=== PATIENT | male | born 1935 | race Caucasian/White ===

== ENCOUNTER → 2017-01-30 | Outpatient (CLI) | payer OTHER, MEDICARE | LOC: BMCIMAGING 12:44 | PROVIDERS: ATTEND Internal Medicine | DX: J40 Bronchitis, not specified as acute or chronic (principal); J84.9 Interstitial pulmonary disease, unspecified; N40.1 Benign prostatic hyperplasia with lower urinary tract symptoms; R06.02 Shortness of breath | CPT/HCPCS: G0103 ==

== ENCOUNTER → 2017-02-12 | Outpatient (CLI) | payer OTHER, MEDICARE | LOC: BHFA 14:30 | PROVIDERS: ATTEND Internal Medicine | DX: R06.02 Shortness of breath (principal); F17.200 Nicotine dependence, unspecified, uncomplicated ==

== ENCOUNTER 2017-02-14 13:37 | Inpatient (IN) | payer OTHER, MEDICARE ==
[2017-02-14 14:39] LABS: % IMMATURE GRANULYOCYTES 0.5 % (0.0-1.1); ABSOLUTE IMMATURE GRANULOCYTES 0.09 10^3/uL (0.00-0.10); ADD DIFF? NO; ADD MORPH? NO; ADD SCAN? NO; ATYPICAL LYMPHOCYTE FLAG 0 (0-99); FRAGMENT RBC FLAG 0 (0-99); HEMATOCRIT 36.3 % (40.0-51.0); LEFT SHIFT FLG 0 (0-99); LIPEMIA HEMOLYSIS FLAG 80 (0-99); MEAN CELL HEMOGLOBIN 28.4 pg (27.9-34.1); MEAN CELL HEMOGLOBIN CONCENTR. 33.1 g/dL (32.4-36.7); MEAN PLATELET VOLUME 10.1 fL (8.7-11.7); PLATELET CLUMPS FLAG 40 (0-99); PLATELET COUNT 401 10^3/uL (150-400); RED BLOOD CELL COUNT 4.22 10^6/uL (4.40-6.38)
--- NOTE | 2017-02-14 14:40 | EDPHY ---
H & P Stated Complaint: sob/saw cardiology 02/02/has tooth infection Time Seen by Provider: 02/14/17 13:47 HPI/ROS: Chief Complaint: Shortness of breath, weakness, depression HPI: 82-year-old male seen having progressively worsening shortness of breath for the last several months after moving to [place] from [place]. He and his are currently staying in his son is basement well there having house built improved field. Patient has had increasingly difficulty breathing and having a hard time walking up the stairs. Family noted that his breathing seemed to be significantly worse today. He has been seen by primary care physician and Cardiology and Urology. He is also has a history of significant depressions been having worsening time lately. He has been taking his bupropion and citalopram a family states that he has cut his bupropion dose in half at his discretion. Today he was discussing with his that he feels that his body is falling apart knee does not want to live a dwindling life for the next 2 years and would rather more rapidly while he was still fairly healthy. 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 Patient currently denies any active suicidal plan and does not feel that his quality of life right now is to the point that he wishes to end his life. He was noted in recent visits to have worsening renal function, some sort of liver abnormality, history of coronary disease and persistent depression. He is complaining of persistent shortness of breath. No recent cough. Does have worsening dyspnea on exertion. Family has brought him in out of concern for his worsening shortness of breath and because of his worsening depression. Patient is also currently being treated for dental infection. He was 1st started on amoxicillin with no improvement in his been taking Augmentin for the last week. ROS: 10 point Review of Systems is negative except as noted in the HPI. PMH: Depression, coronary artery disease, benign prostate hypertrophy, COPD, Medications: Tamsulosin Pravastatin Lisinopril Citalopram Admit Aspirin Albuterol Allergies: No known drug allergies Social History: Remote smoking, no alcohol, no recreational drug use Family History: non-contributory Physical Exam: Gen: Awake, Alert, flat affect, not making eye contact HEENT: Nose: no rhinorrhea Eyes: PERRLA, EOMI Mouth: Moist mucosa Neck: Supple, no JVD Chest: nontender, diminished air breath sounds at the bilateral bases he, right greater than left with the very mild expiratory wheeze Heart: S1, S2 normal, no murmur Abd: Soft, non-tender, no guarding Back: no CVA tenderness, no midline tenderness Ext: no edema, non-tender Skin: no rash Neuro: CN II-XII intact, Sensation grossly intact, Strength 5/5 in bilateral upper and lower extremities - Personal History Current Tetanus/Diphtheria Vaccine: Yes - Medical/Surgical History Hx Asthma: Yes Hx Chronic Respiratory Disease: Yes Hx Diabetes: No Hx Cardiac Disease: Yes Hx Renal Disease: No Hx Cirrhosis: No Hx Alcoholism: No Hx HIV/AIDS: No Hx Splenectomy or Spleen Trauma: No Other PMH: ? silent heart attack/chronic resp issues/depression/htn/hernia/ strangulated bowel - Social History Smoking Status: Never smoked Constitutional: Initial Vital Signs Temperature (C) 36.7 C 02/14/17 13:42 Heart Rate 76 02/14/17 13:42 Respiratory Rate 20 02/14/17 13:42 Blood Pressure 134/70 H 02/14/17 13:42 O2 Sat (%) 94 02/14/17 13:42 O2 Delivery Mode Room Air Allergies/Adverse Reactions: No Known Allergies Allergy (Unverified 02/14/17 13:39) Home Medications: Medication Instructions Recorded Albuterol 02/14/17 Aspirin 81mg (*) 02/14/17 Augmentin 875 MG TAB (*) 02/14/17 Bupropion HCl Sr 02/14/17 Citalopram 02/14/17 Lisinopril 02/14/17 Pravastatin Sodium 02/14/17 Tamsulosin HCl 02/14/17 Medical Decision Making - Diagnostics Imaging Results: Increased interstitial disease compared to 1 from the of last month with cephalization. Imaging: I viewed and interpreted images myself ED Course/Re-evaluation: 82-year-old male with worsening dyspnea on exertion. Of note he had a BMP with 900 in a recent visit to Cardiology. Chest x-ray here shows increasing interstitial lung markings compared to an x-ray from the of last month with cephalization. Patient also has renal insufficiency with a creatinine of 1.6. Given his worsening symptoms and is shortness of breath and dyspnea on exertion plan will be to admit to the hospital for further care and evaluation and optimization of his cardiopulmonary status. - Data Points Laboratory Results: Laboratory Results 02/14/17 14:20 02/14/17 14:20 02/14/17 02/14/17 14:20 14:20 WBC 17.82 10^3/uL H 10^3/uL (3.80-9.50) RBC 4.22 10^6/uL L 10^6/uL (4.40-6.38) Hgb 12.0 g/dL L g/dL (13.7-17.5) Hct 36.3 % L % (40.0-51.0) MCV 86.0 fL fL (81.5-99.8) MCH 28.4 pg pg (27.9-34.1) MCHC 33.1 g/dL g/dL (32.4-36.7) RDW 13.0 % % (11.5-15.2) Plt Count 401 10^3/uL H 10^3/uL (150-400) MPV 10.1 fL fL (8.7-11.7) Neut % (Auto) 83.9 % H % (39.3-74.2) Lymph % (Auto) 7.6 % L % (15.0-45.0) [place] % (Auto) 6.3 % % (4.5-13.0) Eos % (Auto) 1.2 % % (0.6-7.6) Baso % (Auto) 0.5 % % (0.3-1.7) Nucleat RBC Rel Count 0.0 % % (0.0-0.2) Absolute Neuts (auto) 14.94 10^3/uL H 10^3/uL (1.70-6.50) Absolute Lymphs (auto) 1.36 10^3/uL 10^3/uL (1.00-3.00) Absolute Monos (auto) 1.12 10^3/uL H 10^3/uL (0.30-0.80) Absolute Eos (auto) 0.22 10^3/uL 10^3/uL (0.03-0.40) Absolute Basos (auto) 0.09 10^3/uL 10^3/uL (0.02-0.10) Absolute Nucleated RBC 0.00 10^3/uL 10^3/uL (0-0.01) Immature Gran % 0.5 % % (0.0-1.1) Immature Gran # 0.09 10^3/uL 10^3/uL (0.00-0.10) Sodium 134 mEq/L mEq/L (134-144) Potassium 4.6 mEq/L mEq/L (3.5-5.2) Chloride 102 mEq/L mEq/L (97-110) Carbon Dioxide 20 mEq/l L mEq/l (22-31) Anion Gap 12 mEq/L mEq/L (8-16) BUN 41 mg/dL H mg/dL (7-23) Creatinine 1.6 mg/dL H mg/dL (0.7-1.3) Estimated GFR 42 Glucose 113 mg/dL H mg/dL (70-100) Calcium 9.3 mg/dL mg/dL (8.5-10.4) Total Bilirubin 0.5 mg/dL mg/dL (0.1-1.4) Conjugated Bilirubin 0.4 mg/dL mg/dL (0.0-0.5) Unconjugated Bilirubin 0.1 mg/dL mg/dL (0.0-1.1) AST 16 IU/L L IU/L (17-59) ALT 27 IU/L IU/L (21-72) Alkaline Phosphatase 70 IU/L IU/L (38-126) Total Protein 6.0 g/dL L g/dL (6.3-8.2) Albumin 3.6 g/dL g/dL (3.5-5.0) Lipase 61.0 IU/L IU/L (23-300) TSH Pending Ethyl Alcohol < 10 mg/dL mg/dL (0-10) Departure - Departure Disposition: [facility] Inpatient Acute Clinical Impression: CHF (congestive heart failure), Dyspnea on exertion, Dental abscess, Depression Condition: Fair Referrals: Tonya Edwards MD [Primary Care Provider] - As per Instructions
[2017-02-14 14:54] LABS: ALANINE AMINOTRANSFERASE 27 IU/L (21-72); ALBUMIN 3.6 g/dL (3.5-5.0); ALKALINE PHOSPHATASE 70 IU/L (38-126); ANION GAP 12 mEq/L (8-16); ASPARTATE AMINOTRANSFERASE 16 IU/L (17-59); BILIRUBIN,TOTAL 0.5 mg/dL (0.1-1.4); BILIRUBIN-CONJUGATED 0.4 mg/dL (0.0-0.5); BILIRUBIN-UNCONJUGATED 0.1 mg/dL (0.0-1.1); CALCIUM 9.3 mg/dL (8.5-10.4); CARBON DIOXIDE 20 mEq/l (22-31); CHLORIDE 102 mEq/L (97-110); CREATININE 1.6 mg/dL (0.7-1.3); ETHANOL SERUM < 10 mg/dL (0-10); GLOMERULAR FILTRATION RATE 42; GLUCOSE 113 mg/dL (70-100); POTASSIUM 4.6 mEq/L (3.5-5.2); SODIUM 134 mEq/L (134-144)
[2017-02-14] MEDS ORDERED: ONDANSETRON 4 MG/2 ML VIAL IVP PRN (15:41)
[2017-02-14] MEDS ORDERED: ONDANSETRON DISINTEGRATING 4 MG TAB PO PRN (15:41)
[2017-02-14] MEDS ORDERED: ACETAMINOPHEN 325 MG TAB PO PRN (15:41)
--- NOTE | 2017-02-14 16:37 | PDGENHP ---
History and Physical - Chief Complaint Acute cough - History of Present Illness PCP: Dr. Bowman Primary telecom analyst: Dr. Singh HPI: 82-year-old male presenting with acute cough characterized as nonproductive, in S associated with dyspnea on exertion, generalized weakness, unintentional weight loss, exacerbated by ambulating upstairs or any physical activity. Reports it is alleviated by lying supine and resting. He reports that it is not modified by use of his home albuterol inhaler with spacer. His onset of symptoms was insidious several weeks ago and has been progressive and worsening thereafter, with acute worsening of the specific cough over the last 24-48 hours. On the night prior to presentation, the patient experienced profuse sweating while sleeping as well as chills. He has been receiving workup for this issue through his primary care provider office and chest x-ray in January demonstrated an interstitial lung disease pattern. He under went pulmonary function tests recently but does not know the results. He has an upcoming echocardiogram and stress test at [facility]. It should be noted that he also was told by his primary care provider that he had a periodontal infection and was placed on amoxicillin. The patient's white blood cell count continued to rise and on 02/10 he was adjusted to Augmentin. He has been adherent to this medication. History Information - Allergies/Home Medication List Allergies/Adverse Reactions: No Known Allergies Allergy (Unverified 02/14/17 13:39) Home Medications: Albuterol [Proventil Inhaler HFA (*)] 2 puffs IH Q4-6PRN PRN 02/14/17 [Last Taken Unknown] Amoxicillin/Clavulanate Pot [Augmentin 875 MG TAB (*)] 875 mg PO BID 02/14/17 [ Last Taken 02/14/17] Ascorbic Acid [Vitamin C 500 mg (*)] 500 mg PO DAILY 02/14/17 [Last Taken ] Aspirin [Aspirin 81mg (*)] 81 mg PO HS 02/14/17 [Last Taken 02/13/17] Bupropion HCl [Bupropion HCl Sr] 150 mg PO BID 02/14/17 [Last Taken 02/14/17] Cholecalciferol Vit D3 [Vitamin D3 (*)] 1,000 units PO DAILY 02/14/17 [Last Taken 02/14/17] Citalopram [CeleXA] 20 mg PO DAILY 02/14/17 [Last Taken 02/14/17] Herbals/Supplements -Info Only 1 ea PO DAILY 02/14/17 [Last Taken 02/14/17] Lisinopril [Zestril 10 mg (*)] 10 mg PO HS 02/14/17 [Last Taken 02/13/17] Multivitamins [Multivitamin (*)] 1 each PO DAILY 02/14/17 [Last Taken 02/14/17] Bristol-3 Fatty Acids/Fish Oil [Bristol 3 1,000 mg Softgel] 1 each PO DAILY [Last Taken 02/14/17] Tamsulosin HCl [Flomax 0.4 MG (*)] 0.8 mg PO HS 02/14/17 [Last Taken 02/13/17] guaiFENesin/DEXTROMETHORPHAN [Mucinex Dm ER 1,200-60 mg Tab] 1 each PO BID 02/14 [Last Taken 02/14/17] I have personally reviewed and updated: family history, medical history, social history, surgical history - Past Medical History Additional medical history: Chronic kidney disease stage 3, suspected baseline is 1.4-1.5. Obstructive coronary artery disease with "silent GA". BPH. Suspected COPD but patient has never received a formal diagnosis. Left hip osteoarthritis - Surgical History Reports: no pertinent surgical hx - Family History Additional family history: father with myocardial infarction in his late 70s, underlying pulmonary disease as well - Social History Smoking Status: Former smoker Alcohol Use: None Drug Use: None Additional social history: patient was previously from [place], relocated to [place] several months ago, currently residing with his Review of Systems ROS: 10pt was reviewed & negative except for what was stated in HPI & below Constitutional: Reports: chills, weakness Respiratory: Reports: cough, shortness of breath Genitourinary: Reports: frequency Muscolosketal: Reports: joint pain ( left hip) Physical Exam Temp Pulse Resp BP Pulse Ox 36.8 C 58 L 18 133/68 H 94 02/14/17 16:00 02/14/17 16:00 02/14/17 16:00 02/14/17 16:00 02/14/17 16:00 Constitutional: no apparent distress, not in pain, uncomfortable Eyes: PERRL, anicteric sclera, EOMI Ears, Nose, Mouth, Throat: moist mucous membranes, hearing normal, ears appear normal, no oral mucosal ulcers, other ( no periodontal infection noted) Cardiovascular: regular rate and rhythym, no murmur, rub, or gallop, No JVD, No edema Respiratory: inspiratory crackles ( bilaterally), other ( cough triggered by deep inspiration), No expiratory wheeze, No bronchial breath sounds Gastrointestinal: normoactive bowel sounds, soft, non-tender abdomen, no palpable masses Genitourinary: no bladder fullness, no bladder tenderness Neurologic: AAOx3, No weakness ( motor strength 5/5 bilateral lower extremity) Psychiatric: interacting appropriately, not anxious, not encephalopathic, thought process linear Lab Data & Imaging Review 02/14/17 14:20 02/14/17 14:20 WBC 17.82 10^3/uL (3.80-9.50) H 02/14/17 14:20 RBC 4.22 10^6/uL (4.40-6.38) L 02/14/17 14:20 Hgb 12.0 g/dL (13.7-17.5) L 02/14/17 14:20 Hct 36.3 % (40.0-51.0) L 02/14/17 14:20 MCV 86.0 fL (81.5-99.8) 02/14/17 14:20 MCH 28.4 pg (27.9-34.1) 02/14/17 14:20 MCHC 33.1 g/dL (32.4-36.7) 02/14/17 14:20 RDW 13.0 % (11.5-15.2) 02/14/17 14:20 Plt Count 401 10^3/uL (150-400) H 02/14/17 14:20 MPV 10.1 fL (8.7-11.7) 02/14/17 14:20 Neut % (Auto) 83.9 % (39.3-74.2) H 02/14/17 14:20 Lymph % (Auto) 7.6 % (15.0-45.0) L 02/14/17 14:20 [place] % (Auto) 6.3 % (4.5-13.0) 02/14/17 14:20 Eos % (Auto) 1.2 % (0.6-7.6) 02/14/17 14:20 Baso % (Auto) 0.5 % (0.3-1.7) 02/14/17 14:20 Nucleat RBC Rel Count 0.0 % (0.0-0.2) 02/14/17 14:20 Absolute Neuts (auto) 14.94 10^3/uL (1.70-6.50) H 02/14/17 14:20 Absolute Lymphs (auto) 1.36 10^3/uL (1.00-3.00) 02/14/17 14:20 Absolute Monos (auto) 1.12 10^3/uL (0.30-0.80) H 02/14/17 14:20 Absolute Eos (auto) 0.22 10^3/uL (0.03-0.40) 02/14/17 14:20 Absolute Basos (auto) 0.09 10^3/uL (0.02-0.10) 02/14/17 14:20 Absolute Nucleated RBC 0.00 10^3/uL (0-0.01) 02/14/17 14:20 Immature Gran % 0.5 % (0.0-1.1) 02/14/17 14:20 Immature Gran # 0.09 10^3/uL (0.00-0.10) 02/14/17 14:20 Sodium 134 mEq/L (134-144) 02/14/17 14:20 Potassium 4.6 mEq/L (3.5-5.2) 02/14/17 14:20 Chloride 102 mEq/L (97-110) 02/14/17 14:20 Carbon Dioxide 20 mEq/l (22-31) L 02/14/17 14:20 Anion Gap 12 mEq/L (8-16) 02/14/17 14:20 BUN 41 mg/dL (7-23) H 02/14/17 14:20 Creatinine 1.6 mg/dL (0.7-1.3) H 02/14/17 14:20 Estimated GFR 42 02/14/17 14:20 Glucose 113 mg/dL (70-100) H 02/14/17 14:20 Calcium 9.3 mg/dL (8.5-10.4) 02/14/17 14:20 Total Bilirubin 0.5 mg/dL (0.1-1.4) 02/14/17 14:20 Conjugated Bilirubin 0.4 mg/dL (0.0-0.5) 02/14/17 14:20 Unconjugated Bilirubin 0.1 mg/dL (0.0-1.1) 02/14/17 14:20 AST 16 IU/L (17-59) L 02/14/17 14:20 ALT 27 IU/L (21-72) 02/14/17 14:20 Alkaline Phosphatase 70 IU/L (38-126) 02/14/17 14:20 Total Protein 6.0 g/dL (6.3-8.2) L 02/14/17 14:20 Albumin 3.6 g/dL (3.5-5.0) 02/14/17 14:20 Lipase 61.0 IU/L (23-300) 02/14/17 14:20 TSH 1.740 uIU/mL (0.465-4.680) 02/14/17 14:20 Ethyl Alcohol < 10 mg/dL (0-10) 02/14/17 14:20 Visualized and Interpreted Chest x-ray results: Yes Chest X-Ray results: other ( diffuse bilateral interstitial infiltrates, mildly increased in the bases from chest x-ray in January) Assessment & Plan Assessment: 82-year-old male presenting with acute on chronic shortness of breath in the setting of suspected interstitial lung disease, chronic kidney disease stage 3 Plan: 1. Shortness of breath. Acute on chronic, new problem this provider, further workup indicated. Suspect that underlying etiology is a new diagnosis of interstitial lung disease but other potential etiologies include inflammation from viral precipitant versus CHF versus atypical pneumonia - get high-resolution chest CT - get echocardiogram - send D-dimer to rule out PE, troponin, BNP, respiratory viral panel - order outside records including pulmonary function test recently performed at [facility] - hold on antibiotics until the above information has been obtained, hold on steroids - provide supportive care of cough - discussed with Dr. Pereira, he will consult on the patient in the morning after the above information has been obtained 2. Leukocytosis. Acute, new problem this provider, further workup indicated. Unclear etiology, it is possible the patient has either an atypical pneumonia or on recognized autoimmune inflammatory process involving pulmonary and renal systems - send ESR, CRP, LDH - hold on antibiotics as above - repeat CBC in a.m. - if patient's cough is worsening or he becomes acutely febrile, send sputum cultures, blood cultures, urine Legionella, empirically give azithromycin or levofloxacin 3. Chronic kidney disease stage 3. unclear etiology although the patient has underlying BPH and ongoing urinary symptoms do make chronic obstructive uropathy possibility - patient reports he has been managed for CKD in the outpatient setting prior to arrival in [place], outside records reviewed including 01/30/2017 creatinine level of 1.4 - patient has not establish care with a oil expert and we should expedite his degree of proteinuria with a spot protein, urine microalbumin to creatinine ratio, fraction excretion of sodium - monitor weights, I&Os, serum creatinine level in a.m. 4. BPH. Chronic, continue on Flomax, recommended considering finasteride 5. Depression. Per family report, patient has struggled with depression for the majority of his adult life and is acutely worsened with his acutely worsening medical issues outlined above - the patient expressed to the family as well as Dr. Nova in the emergency department that he was considering harming himself but that he had not decided to take definitive action, reported that he did not feel like he had actively decide on a plan - Dr. Nova and I discussed above, we agreed not to place the patient on M1 hold as he appears to have passive suicidal ideation but no active intention - that said, I believe once the patient is medically cleared of the issues above , should receive a mental health TLC evaluation to ascertain whether he requires inpatient mental health stabilization moving forward - if he does not require inpatient mental health stabilization moving forward, his family does have a psychology appointment scheduled for him this coming Thursday and I would highly recommend that he make that appointment - continue on home medications Wellbutrin and citalopram, it should be noted that the patient is self managing these medications and titrating them 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 Cardiac Prophylaxis. High risk patient, heparin subcu Code. Full, is MPOA Disposition. Anticipated discharge is 02/15/2017, pending further workup and treatment of conditions outlined above. If patient requires greater than 48 hours inpatient hospitalization for ongoing workup, then he will require upgraded to inpatient admission status.
[2017-02-14 17:14] LABS: HEMATOCRIT 35.6 % (40.0-51.0)
[2017-02-14 17:20] LABS: COLOR YELLOW; LEUKOCYTE ESTERASE,URINE NEGATIVE (NEGATIVE); NITRITE,URINE NEGATIVE (NEGATIVE)
[2017-02-14 17:30] LABS: C-REACTIVE PROTEIN 61.7 mg/L (<10.0); LACTATE DEHYDROGENASE 371 IU/L (313-618)
[2017-02-14 17:35] LABS: RANDOM URINE PROTEIN 8 mg/dL (0-11)
[2017-02-14 17:40] LABS: TROPONIN I < 0.012 ng/mL (0-0.034)
[2017-02-14] MEDS: IPRATROPIUM/ALBUTEROL 3 ML DEYVIAL IH SCH ×3 (17:40→21:06)
[2017-02-14] MEDS: buPROPion SR 150 MG TAB PO SCH (20:52)
[2017-02-14] MEDS: ASPIRIN 81 MG CHEWABLE TAB PO SCH (20:52)
[2017-02-14] MEDS: TAMSULOSIN HCL 0.4 MG CAP PO SCH (20:52)
[2017-02-14] MEDS: guaiFENesin 600 MG TAB.ER PO SCH (20:52)
[2017-02-14] MEDS: HEPARIN 5,000 UNIT/0.5 ML SYR SC SCH (20:52)
[2017-02-14] MEDS: LISINOPRIL 10 MG TAB PO SCH (20:52)
[2017-02-15] MEDS: HEPARIN 5,000 UNIT/0.5 ML SYR SC SCH ×3 (05:03→21:33)
[2017-02-15 05:11] LABS: % IMMATURE GRANULYOCYTES 0.4 % (0.0-1.1); ABSOLUTE IMMATURE GRANULOCYTES 0.05 10^3/uL (0.00-0.10); ADD DIFF? NO; ADD MORPH? NO; ADD SCAN? NO; ATYPICAL LYMPHOCYTE FLAG 20 (0-99); FRAGMENT RBC FLAG 0 (0-99); HEMATOCRIT 37.4 % (40.0-51.0); HEMOGLOBIN 12.2 g/dL (13.7-17.5); LEFT SHIFT FLG 0 (0-99); LIPEMIA HEMOLYSIS FLAG 80 (0-99); MEAN CELL HEMOGLOBIN 28.6 pg (27.9-34.1); MEAN CELL HEMOGLOBIN CONCENTR. 32.6 g/dL (32.4-36.7); MEAN CELL VOLUME 87.6 fL (81.5-99.8); MEAN PLATELET VOLUME 10.2 fL (8.7-11.7); PLATELET CLUMPS FLAG 0 (0-99); PLATELET COUNT 419 10^3/uL (150-400); RED BLOOD CELL COUNT 4.27 10^6/uL (4.40-6.38); RED CELL DISTRIBUTION WIDTH 13.2 % (11.5-15.2)
[2017-02-15 05:25] LABS: ALANINE AMINOTRANSFERASE 30 IU/L (21-72); ALBUMIN 3.4 g/dL (3.5-5.0); ALKALINE PHOSPHATASE 68 IU/L (38-126); ANION GAP 10 mEq/L (8-16); ASPARTATE AMINOTRANSFERASE 15 IU/L (17-59); BILIRUBIN,TOTAL 0.6 mg/dL (0.1-1.4); CALCIUM 9.4 mg/dL (8.5-10.4); CARBON DIOXIDE 22 mEq/l (22-31); CHLORIDE 105 mEq/L (97-110); CREATININE 1.6 mg/dL (0.7-1.3); GLOMERULAR FILTRATION RATE 42; GLUCOSE 90 mg/dL (70-100); POTASSIUM 5.1 mEq/L (3.5-5.2); SODIUM 137 mEq/L (134-144); TOTAL PROTEIN 5.9 g/dL (6.3-8.2)
[2017-02-15] MEDS: IPRATROPIUM/ALBUTEROL 3 ML DEYVIAL IH SCH ×4 (06:38→20:41)
[2017-02-15] MEDS ORDERED: Herbals/Supplements -Info Only PO SCH (09:00)
[2017-02-15] MEDS: CITALOPRAM 20 MG TAB PO SCH (10:11)
[2017-02-15] MEDS: OMEGA-3 FATTY ACIDS 1,000 MG CAP PO SCH (10:16)
[2017-02-15] MEDS: guaiFENesin 600 MG TAB.ER PO SCH ×2 (10:16→20:22)
[2017-02-15] MEDS: ASCORBIC ACID 500 MG TAB PO SCH (10:16)
[2017-02-15] MEDS: MULTIVITAMINS 1 EACH TAB PO SCH (10:17)
[2017-02-15] MEDS: buPROPion SR 150 MG TAB PO SCH ×2 (10:17→20:23)
[2017-02-15] MEDS: CHOLECALCIFEROL VIT D3 1,000 UNITS TAB PO SCH (10:17)
--- NOTE | 2017-02-15 13:36 | GCON ---
[f rep st] CONSULTATION REASON FOR ADMISSION: Dyspnea and cough. HISTORY OF PRESENT ILLNESS: The patient is a very pleasant 82-year-old white male with past medical history including chronic renal insufficiency, coronary artery disease, and possible chronic obstru ctive pulmonary disease. He presented with complaints of a cough. This has been going on for sever al weeks. This is nonproductive. He also has significant breathlessness, worsened with any form of exertion, especially when climbing stairs. There has been no chest pain, pleuritic-type chest pain or angina equivalent. He was having some chills and some fever prior to his admission. He has bee n seen by [facility]. He has had pulmonary function testing done there. Currently, he is restin g comfortably on nasal cannula oxygen. His cough has improved some. PAST MEDICAL HISTORY: Again, significant for chronic renal insufficiency, coronary artery disease, possible chronic obstructive pulmonary disease, and osteoarthritis. ALLERGIES: No known allergies to medications. SOCIAL HISTORY: Previous smoker, none for over 50 years. No significant alcohol use. Work history : He is retired. They recently moved from [place] to [place] 3 months ago. He has excellent [facility] support. MEDICATIONS: At home include aspirin, Augmentin, ascorbic acid, bupropion, cholecalciferol, Celexa, Zestril, omega-3 fatty acid, multivitamin, tamsulosin, Mucinex. PHYSICAL EXAM: VITAL SIGNS: Blood pressure is 107/52, pulse 61, respiration 18, temperature is 36. 8, oxygen saturation 93% on 1 L. GENERAL: He is a well-developed, well-nourished, elderly white ma madonna, who is resting comfortably on nasal cannula oxygen. HEENT: Eyes: PERRLA. EOMI. Throat shows no erythema or tonsillar hypertrophy. NECK: Supple. There is no cervical adenopathy. HEART: Re gular rate and rhythm, with a 2/6 systolic murmur at the left sternal border without radiation. VICKY GS: Diminished breath sounds. Increased crackles in the bases. There are no wheeze. There is mil d prolongation expiratory phase. ABDOMEN: Soft, nontender. Bowel sounds are present. EXTREMITIES : No clubbing, cyanosis, or edema. LABORATORIES: Initial white count was 17, currently is 13.1, hemoglobin 12, hematocrit 37, platelet count is 419. Sodium 137, potassium 5.1, chloride 105, CO2 is 22, BUN is 37, creatinine 1.6, gluco se is 90. Urinalysis is negative. Urine drug screen is negative. Respiratory viral panel is pendi ng. A CT scan of the chest shows nonspecific interstitial pneumonitis, with some evidence of bronchiecta sis, and also has coronary atherosclerosis. IMPRESSION: 1. Dyspnea and cough, etiology of which is unclear. Although chronic obstructive pulmonary disease is a possibility, he did not smoke for very long. 2. Nonspecific interstitial pneumonitis. Given his elevated white count, must take into considerat ion an infectious etiology. 3. Chronic renal insufficiency. 4. Coronary artery disease. RECOMMENDATIONS: 1. We will adjust his antibiotics. In this regard, we will start him on azithromycin, in addition to his Augmentin. 2. We will start oral steroids, and we will taper over 2 weeks' time. 3. Wean off oxygen as tolerated. 4. DVT and PE prophylaxis. 5. Stress ulcer prophylaxis. 6. The patient should follow up in our office in the next several weeks. Thank you very much. /[id number]/MODL
[2017-02-15] MEDS: AZITHROMYCIN 250 MG TAB PO SCH (14:11)
[2017-02-15] MEDS: predniSONE 20 MG TAB PO SCH (14:12)
--- NOTE | 2017-02-15 14:15 | ECHO ---
[id number] + + [address] : : [place] [address] : : [phone] + Adult Echocardiographic Report + ----+ :Name: Alvarez JENNINGS Date: 02/15/2017 09:33 AM : : Hospital Admission Number: [id number] Location: 380: :: 1935 Gender: Male Height: 67 in : :Age: 82 yrs Race: WH Weight: 152 lb : :Reason For Study: Eval for CHF : : BSA: 1.8 meters2 : + ----+ MMode/2D Measurements \T\ Calculations IVSd: 0.74 cm LVIDd: 4.4 cm FS: 46.9 % Ao root diam: LVPWd: 0.92 cm LVIDs: 2.3 cm EDV(Teich): 3.6 cm 87.9 ml LA dimension: ESV(Teich): 4.2 cm 18.9 ml EF(Teich): 78.5 % LVLd ap4: 8.1 cm SV(MOD-sp4): EDV(MOD-sp4): 54.0 ml 75.0 ml LVLs ap4: 5.9 cm ESV(MOD-sp4): 21.0 ml EF(MOD-sp4): 72.0 % Normal Measurement Values: + + :LVIDd (3.5-5.7cm) IVSd (0.6-1.1cm) LVPWd (0.6-1.1cm) Aortic Root (2.0-3.7cm)Left Atrium (1.5-4.0cm): :LV Vol(d) (76-115ml) LV Vol(s) (29-48ml) Ejec Fraction (50-65%)PV Patrick (0.6- 1.2m/s) TV Patrick (0.4-1.0m/s) : :MV E Patrick (0.8-1.0m/s)MV A Patrick (0.3-1.0m/s)LVOT Patrick (0.7-1.2m/s) Asc Ao Patrick ( 0.9-1.8m/s) : + + Doppler Measurements \T\ Calculations MV E max patrick: 64.7 cm/sec Ao mean P.5 mmHg TR max patrick: 217.2 cm/sec MV A max patrick: 79.5 cm/sec Ao V2 mean: 95.8 cm/sec TR max P.9 mmHg MV E/A: 0.81 Ao V2 VTI: 28.3 cm RAP systole: 5.0 mmHg RVSP(TR): 23.9 mmHg Left Ventricle The left ventricle is normal in size. There is normal left ventricular wall thickness. Left ventricular systolic function is normal. Ejection Fraction = 65-70%. There is Doppler evidence for diastolic dysfunction. No regional wall motion abnormalities noted. Right Ventricle The right ventricle is normal in size and function. Atria The left atrial size is normal. Right atrial size is normal. The interatrial septum is intact with no evidence for an atrial septal defect. Mitral Valve The mitral valve is normal in structure and function. There is no evidence of mitral valve prolapse. There is no mitral valve stenosis. There is mild mitral regurgitation. Tricuspid Valve The tricuspid valve is normal in structure and function. There is mild tricuspid regurgitation. Right ventricular systolic pressure is normal. Aortic Valve The aortic valve is trileaflet. The aortic valve opens well. There is no aortic stenosis. There is no aortic insufficiency. Pulmonic Valve The pulmonic valve is normal in structure and function. Trace pulmonic valvular regurgitation. Great Vessels The aortic root is normal size. Pericardium/Pleural There is no pericardial effusion. Conclusion A complete two-dimensional transthoracic echocardiogram was performed (2D, M-mode, Doppler and color flow Doppler). Left ventricular systolic function is normal. Ejection Fraction = 65-70%. There is mild mitral regurgitation. There is mild tricuspid regurgitation. Right ventricular systolic pressure is normal. Trace pulmonic valvular regurgitation. There is Doppler evidence for diastolic dysfunction. Final Reading Physician: Jonn Enrique electronically signed on 02/15/2017 02:13 PM Ordering Physician: Jonel Spencer Performed By: Gina Davis, CODY
--- NOTE | 2017-02-15 14:18 | HOSPPROG ---
Hospitalist Progress Note Assessment/Plan: 82-year-old man recently moved from [place] complains of shortness of breath and cough for several weeks. He initially got sick with what sounds like a viral illness from his grandkids in December he has had an ongoing cough and shortness of breath since then. Prior to a admission he was complaining of diaphoresis and chills and opted to come into the emergency department for evaluation. He did see Dr. Singh in clinic who ordered a pulmonary function test the results of which are pending. He also ordered an echo and nuclear stress test # cough and dyspnea with abnormal CT scan concerning for ILD or pneumonitis. He is currently taking Augmentin for a dental infection. Patient discussed with Dr. Pereira. * Treat for presumed infectious etiology with Zithromax in addition to his Augmentin * Prednisone taper * Follow clinically, he will follow up with pulmonology as an outpatient * Echocardiogram. # coronary artery disease, has established care with [facility] and plans on doing nuclear stress test at their facility. He currently has no chest pain # BPH, stable per patient # hypertension # dyslipidemia on a statin # chronic kidney disease # depression. states this been a problem for quite some time and he has not been as compliant as he should be with his antidepressants. On the day of admission his admits she brought him in because he said goodbye to her and was ready to . * Will have TLC evaluation prior to discharge to assess follow-up needs. Pt will need additonal midnight stay for further evaluation of cough and dyspnea , he has had no significant improvement today. Subjective: Patient new to me chart reviewed. Discussed with Dr. Pereira. No new complaints today. He is quite tired. No chest pain. No edema. Objective: Vital Signs Temp Pulse Resp BP Pulse Ox 36.8 C 61 18 107/52 L 93 02/15/17 11:57 02/15/17 11:57 02/15/17 11:57 02/15/17 11:57 02/15/17 11:57 Laboratory Results 02/15/17 04:25 02/15/17 04:25 02/14/17 02/15/17 02/16/17 05:59 05:59 05:59 Intake Total 50 Balance 50 - Physical Exam Constitutional: no apparent distress, appears nourished, not in pain Eyes: PERRL, anicteric sclera, EOMI Ears, Nose, Mouth, Throat: moist mucous membranes Cardiovascular: regular rate and rhythym, no murmur, rub, or gallop Respiratory: no respiratory distress, reduced air movement, inspiratory crackles , No expiratory wheeze, No bronchial breath sounds Gastrointestinal: normoactive bowel sounds, soft, non-tender abdomen, no palpable masses Skin: warm, normal color Neurologic: AAOx3, No facial droop Psychiatric: interacting appropriately, not anxious, not encephalopathic, depressed ICD10 Worksheet Patient Problems: Problems Problem Status Onset CHF (congestive heart failure) Acute Dyspnea on exertion Acute Dental abscess Acute Depression Acute
[2017-02-15] MEDS: guaiFENesin/CODEINE PHOS 10 ML UDCUP PO PRN (15:05)
[2017-02-15] MEDS: ASPIRIN 81 MG CHEWABLE TAB PO SCH (20:22)
[2017-02-15] MEDS: LISINOPRIL 10 MG TAB PO SCH (20:22)
[2017-02-15] MEDS: TAMSULOSIN HCL 0.4 MG CAP PO SCH (20:23)
[2017-02-15] MEDS: BENZONATATE 100 MG CAP PO PRN (20:23)
[2017-02-15] MEDS ORDERED: TEARS/DEXTRAN 70/HYPROMELLOSE 15 ML OPHT.BTL EACHEYE PRN (22:58)
[2017-02-16] MEDS: IPRATROPIUM/ALBUTEROL 3 ML DEYVIAL IH SCH ×4 (05:32→21:05)
[2017-02-16] MEDS: HEPARIN 5,000 UNIT/0.5 ML SYR SC SCH ×3 (05:52→20:47)
[2017-02-16] MEDS: AZITHROMYCIN 250 MG TAB PO SCH (09:40)
[2017-02-16] MEDS: guaiFENesin 600 MG TAB.ER PO SCH ×2 (09:41→20:47)
[2017-02-16] MEDS: CHOLECALCIFEROL VIT D3 1,000 UNITS TAB PO SCH (09:41)
[2017-02-16] MEDS: buPROPion SR 150 MG TAB PO SCH ×2 (09:41→20:46)
[2017-02-16] MEDS: MULTIVITAMINS 1 EACH TAB PO SCH (09:41)
[2017-02-16] MEDS: ASCORBIC ACID 500 MG TAB PO SCH (09:41)
[2017-02-16] MEDS: OMEGA-3 FATTY ACIDS 1,000 MG CAP PO SCH (09:41)
[2017-02-16] MEDS: predniSONE 20 MG TAB PO SCH (09:41)
[2017-02-16] MEDS: CITALOPRAM 20 MG TAB PO SCH (09:41)
--- NOTE | 2017-02-16 11:36 | HOSPPROG ---
Hospitalist Progress Note Assessment/Plan: 82-year-old man recently moved from [place] complains of shortness of breath and cough for several weeks. He initially got sick with what sounds like a viral illness from his grandkids in December he has had an ongoing cough and shortness of breath since then. Prior to a admission he was complaining of diaphoresis and chills and opted to come into the emergency department for evaluation. He did see Dr. Singh in clinic who ordered a pulmonary function test the results of which are pending. He also ordered an echo and nuclear stress test # cough and dyspnea with abnormal CT scan concerning for ILD or pneumonitis. He is currently taking Augmentin for a dental infection. Zithromax added to his antibiotic regimen yesterday as well as prednisone. Patient continues to cough but is feeling a little bit better today. I did review the results of his echocardiogram with the family. Respiratory virus panel is negative. * Continue Zithromax and prednisone * Continue Tessalon Perles * Review with Dr. Garcia regarding possible DC in follow-up today depending on patient's symptoms. * He can cancel his echo at [facility] but should probably get his nuclear stress test per Dr. Singh request # coronary artery disease, has established care with [facility] and plans on doing nuclear stress test at their facility. He currently has no chest pain # BPH, stable per patient # hypertension # dyslipidemia on a statin # chronic kidney disease. No baseline no own but he was followed by a desilverizer in [place]. Yesterday creatinine 1.6 will repeat it this morning. He already has follow-up scheduled with a desilverizer as an outpatient. # depression. states this been a problem for quite some time and he has not been as compliant as he should be with his antidepressants. On the day of admission his admits she brought him in because he said goodbye to her and was ready to . * Will have TLC evaluation prior to discharge to assess follow-up needs. Pt will need 2 midnight stay for further evaluation of cough and dyspnea, he has had no significant improvement today. Subjective: . Feeling better today Still having a cough Objective: Vital Signs Temp Pulse Resp BP Pulse Ox 36.7 C 72 18 107/53 L 94 02/16/17 11:19 02/16/17 11:19 02/16/17 11:19 02/16/17 11:19 02/16/17 11:19 02/15/17 02/16/17 02/17/17 05:59 05:59 05:59 Intake Total 2049 500 Output Total 500 300 Balance 1550 200 - Physical Exam Constitutional: no apparent distress, not in pain Eyes: PERRL Ears, Nose, Mouth, Throat: moist mucous membranes Cardiovascular: regular rate and rhythym Respiratory: no respiratory distress, inspiratory crackles (At the bases, seems better than yesterday.), No bronchial breath sounds Gastrointestinal: normoactive bowel sounds, soft, non-tender abdomen, no palpable masses Genitourinary: no bladder fullness Skin: warm Musculoskeletal: No asymmetric calves, No joint effusion Neurologic: AAOx3 Psychiatric: interacting appropriately, not anxious, not encephalopathic ICD10 Worksheet Patient Problems: Problems Problem Status Onset CHF (congestive heart failure) Acute Dental abscess Acute Depression Acute Dyspnea on exertion Acute
[2017-02-16 12:51] LABS: ANION GAP 12 mEq/L (8-16); CALCIUM 9.7 mg/dL (8.5-10.4); CARBON DIOXIDE 22 mEq/l (22-31); CHLORIDE 102 mEq/L (97-110); CREATININE 1.4 mg/dL (0.7-1.3); GLOMERULAR FILTRATION RATE 49; GLUCOSE 112 mg/dL (70-100); POTASSIUM 4.9 mEq/L (3.5-5.2); SODIUM 136 mEq/L (134-144)
--- NOTE | 2017-02-16 17:16 | PDINTPN ---
Marine Operations Coordinator Progress Note Assessment/Plan: Assessment 82 M admitted with 3 weeks cough and SOB found to have infiltrates on CT scan and hypoxia. Treated with abx with improvement in O2 requirement (RA) and decrease in WBC. Ct report suggested NSIP. * Abnormal CT- I suspect PNA >NSIP given clinical scenario. Agree with completing abx, and slow steroid taper. PFT shows mild obstruction on spirometry but normal volumes and DLCO. He quit smoking around age 35, co COPD not likely and bronchiectasis is mild. In addition, normals for PFT are hard to find in this age group and patient reported difficulty at time of test 2/2 cough (MUCH better now). I can see him in 2-3 weeks with new PFTs and eventiual repeat chest CT (eg 2-3 months). Ok for dc from pulmonary perspective Objective: Vital Signs Temp Pulse Resp BP Pulse Ox 36.7 C 72 18 107/53 L 94 02/16/17 11:19 02/16/17 11:19 02/16/17 11:19 02/16/17 11:19 02/16/17 11:19 Laboratory Results 02/16/17 12:27 02/15/17 02/16/17 02/17/17 05:59 05:59 05:59 Intake Total 2050 500 Output Total 500 300 Balance 1550 200 Physical Exam - Physical Exam General Appearance: WD/WN, alert, no apparent distress EENT: PERRL/EOMI Neck: supple Respiratory: lungs clear, decreased breath sounds, No crackles, No rales Cardiac/Chest: regular rate, rhythm, No edema Abdomen: non-tender, soft, No distended Skin: normal color, warm/dry Lymphatic: no adenopathy Extremities: non-tender, No pedal edema Neuro/Psych: alert, normal mood/affect, oriented x 3 ICD10 Worksheet Patient Problems: Problems Problem Status Onset CHF (congestive heart failure) Acute Dental abscess Acute Depression Acute Dyspnea on exertion Acute
--- NOTE | 2017-02-16 17:56 | HOSPPROG ---
Hospitalist Progress Note Assessment/Plan: 82-year-old man recently moved from [place] complains of shortness of breath and cough for several weeks. He initially got sick with what sounds like a viral illness from his grandkids in December he has had an ongoing cough and shortness of breath since then. Prior to a admission he was complaining of diaphoresis and chills and opted to come into the emergency department for evaluation. He has improved since coming to the hospital with at steroids and antibiotics. # cough and dyspnea with abnormal CT scan concerning for ILD or pneumonitis. He is currently taking Augmentin for a dental infection. Zithromax added to his antibiotic regimen as well as prednisone. patient improved today with good O2 sats on room air * patient will be discharged on a prednisone taper finished Zithromax and he will follow up with Dr. Garcia * case discussed with Dr. Garcia # coronary artery disease, has established care with [facility] and plans on doing nuclear stress test at their facility. He currently has no chest pain # BPH, stable per patient # hypertension # dyslipidemia on a statin # chronic kidney disease. No baseline no own but he was followed by a studio producer in [place]. creatinine improved # depression. states this been a problem for quite some time and he has not been as compliant as he should be with his antidepressants. On the day of admission his admits she brought him in because he said goodbye to her and was ready to . * patient with psychiatric nurse recommends psychiatric consult for medication management * Continue current medications psych consult ordered Pt will need 2 midnight stay for further evaluation of cough and dyspnea, he has had no significant improvement today. Objective: Vital Signs Temp Pulse Resp BP Pulse Ox 36.7 C 72 18 107/53 L 94 02/16/17 11:19 02/16/17 11:19 02/16/17 11:19 02/16/17 11:19 02/16/17 11:19 Laboratory Results 02/16/17 12:27 02/15/17 02/16/17 02/17/17 05:59 05:59 05:59 Intake Total 0 500 Output Total 500 300 Balance 1550 200 ICD10 Worksheet Patient Problems: Problems Problem Status Onset CHF (congestive heart failure) Acute Dyspnea on exertion Acute Dental abscess Acute Depression Acute
[2017-02-16] MEDS: LISINOPRIL 10 MG TAB PO SCH (20:46)
[2017-02-16] MEDS: TAMSULOSIN HCL 0.4 MG CAP PO SCH (20:46)
[2017-02-16] MEDS: ASPIRIN 81 MG CHEWABLE TAB PO SCH (20:46)
[2017-02-16] MEDS: guaiFENesin/CODEINE PHOS 10 ML UDCUP PO PRN (20:50)
[2017-02-16] MEDS: BENZONATATE 100 MG CAP PO PRN (20:50)
[2017-02-17 05:31] LABS: ANION GAP 8 mEq/L (8-16); CALCIUM 9.7 mg/dL (8.5-10.4); CARBON DIOXIDE 22 mEq/l (22-31); CHLORIDE 106 mEq/L (97-110); CREATININE 1.4 mg/dL (0.7-1.3); GLOMERULAR FILTRATION RATE 49; GLUCOSE 93 mg/dL (70-100); POTASSIUM 4.6 mEq/L (3.5-5.2); SODIUM 136 mEq/L (134-144)
[2017-02-17] MEDS: IPRATROPIUM/ALBUTEROL 3 ML DEYVIAL IH SCH ×2 (06:17→09:44)
--- NOTE | 2017-02-17 07:05 | GDS ---
[f rep st] DISCHARGE SUMMARY DIAGNOSIS: 1. Cough, shortness of breath, unclear etiology, improved with prednisone. Followup with Pulmonolo gy. 2. Coronary artery disease. Followup nuclear stress test is scheduled. 3. Benign prostatic hypertrophy. 4. Hypertension. 5. Dyslipidemia. 6. Chronic kidney disease, creatinine 1.4 at discharge. 7. Depression. PROCEDURES DONE: Echocardiogram, normal EF, mild MR, mild TR. Normal right ventricular systolic pr essure. Chest CT, suspect nonspecific interstitial pneumonia with interstitial opacities throughout both aayush gs, most prominent in bilateral lower lobes. Peribronchial thickening and bronchiectasis. Coronary atherosclerosis. CONSULTATIONS: Edgardo Pereira from Pulmonology. HOSPITAL COURSE: The patient is an 82-year-old man, with a history of heart disease, who moved to [facility] in November. He developed a cough in December and has had cough and shortness of breath since then. He had abnormal findings on his chest CT and was admitted for further evaluation. On admissi on, he was seen by Pulmonology, started on Zithromax in combination with his previous antibiotic Aug mentin, and started on a prednisone taper. He was also started on Tessalon Perles and over the cour se of his hospitalization his cough did improve and his breathing was stable. Pulmonology felt that this may have been bronchiectasis versus ILD versus pneumonitis from atypical pneumonia. He has re sponded to therapy here, whether it was the steroids or the Zithromax he will need followup with Pul monology. At this time we will plan to discharge him on a prednisone taper, finish a course of Zith romax and complete his course of Augmentin. He has been seen by Pulmonology during this hospitaliza tion who will follow up with him as an outpatient. Dysphagia. He did complain of some dysphagia during his hospitalization. He was evaluated by [facility], who felt that this was more of an esophageal issue and recommended outpatient esophagram. I will defer to Dr. Edwards, the patient's primary care provider, to schedule this. He also has significant depression and was seen by our home health care social worker and nurse who recommended outpa tient followup. He was not deemed to be suicidal or a risk to harm himself. I will refill his Well butrin for a month and he plans on following up with his therapist as well as Dr. Edwards, and to try and find a psychiatrist in the area. He has been on a stable dose of Wellbutrin and is feeling that it is helping him a little bit. Coronary artery disease. He was seen by Dr. Singh, has a nuclear stress test ordered which will be done in followup. He also had an echo ordered, I told him not to have this done since he just had one in the hospital during this admission. He is currently not having any cardiac symptoms. CONDITION ON DISCHARGE: Good. He is 94% on room air, heart rate 72, blood pressure 107/53, he has been afebrile. He is alert and oriented. His heart is regular. Lungs are clear and diminished. H e does have very fine rales just right at the base, no edema. DISCHARGE MEDICATIONS: Please see discharge medication form. FOLLOWUP INSTRUCTIONS: Follow up with Dr. Edwards in the next 1-2 weeks for hospital followup. She c an check on his respiratory status and cough. She can refill his medications as needed until he is able to establish care with Psychiatry. She can follow up with scheduling an esophagram for further evaluation of his dysphagia, this is been going on for many, many years, and is deemed safe by susi pedro here in the hospital. Follow up with Dr. Eliud Garcia as an outpatient. I gave him the num lynnette to call to establish care, and they will set up an appointment. Pulmonology will follow up with the patient prior to discharge today. Total time spent with the patient on day of discharge and coordination of care is 45 minutes. /[id number]/MODL
[2017-02-17] MEDS: OMEGA-3 FATTY ACIDS 1,000 MG CAP PO SCH (08:10)
[2017-02-17] MEDS: guaiFENesin 600 MG TAB.ER PO SCH (08:10)
[2017-02-17] MEDS: CHOLECALCIFEROL VIT D3 1,000 UNITS TAB PO SCH (08:10)
[2017-02-17] MEDS: predniSONE 20 MG TAB PO SCH (08:11)
[2017-02-17] MEDS: ASCORBIC ACID 500 MG TAB PO SCH (08:11)
[2017-02-17] MEDS: CITALOPRAM 20 MG TAB PO SCH (08:11)
[2017-02-17] MEDS: buPROPion SR 150 MG TAB PO SCH (08:11)
[2017-02-17] MEDS: AZITHROMYCIN 250 MG TAB PO SCH (08:11)
[2017-02-17] MEDS: MULTIVITAMINS 1 EACH TAB PO SCH (08:11)
[2017-02-17] MEDS: HEPARIN 5,000 UNIT/0.5 ML SYR SC SCH ×2 (08:17→14:59)
[2017-02-17 10:00] VITALS: O2SAT 93
[2017-02-17 11:02] VITALS: BP 131/65; PULSE 79; RESP 20; TEMP 98.6
== END 2017-02-17 16:09 | disposition home or self-care (01) | DRG 204 ==
LOC: F3E 15:32 → OBSVTOIN 02-15 14:15
PROVIDERS: ADMIT Internal Medicine; ATTEND Internal Medicine
DX: R06.02 Shortness of breath (principal); I25.10 Atherosclerotic heart disease of native coronary artery without angina pectoris; F33.9 Major depressive disorder, recurrent, unspecified; N40.0 Benign prostatic hyperplasia without lower urinary tract symptoms; I12.9 Hypertensive chronic kidney disease with stage 1 through stage 4 chronic kidney disease, or unspecified chronic kidney disease; N18.9 Chronic kidney disease, unspecified; E78.5 Hyperlipidemia, unspecified
CPT/HCPCS: 80305; 92610-GN; 97116-GP; 97161-GP; 97165-GO; G0378; G0480; G8978-GP-CI; G8979-GP-CI; G8987-GO-CI; G8988-GO-CH; G8989-GO-CH; G8996-GN-CI; G8997-GN-CI; G8998-GN-CI

== ENCOUNTER → 2017-02-25 | Outpatient (CLI) | payer OTHER, MEDICARE | LOC: BHFA 13:00 | PROVIDERS: ATTEND Internal Medicine Cardiovascular Disease | DX: R06.02 Shortness of breath (principal) | CPT/HCPCS: 78452; 93017; A9500; J2785 ==

== ENCOUNTER → 2017-04-22 | Outpatient (CLI) | payer OTHER, MEDICARE | LOC: FIMAGING 09:41 | PROVIDERS: ATTEND Internal Medicine Critical Care Medicine | DX: R91.8 Other nonspecific abnormal finding of lung field (principal); I25.10 Atherosclerotic heart disease of native coronary artery without angina pectoris; K44.9 Diaphragmatic hernia without obstruction or gangrene ==

== ENCOUNTER → 2017-08-25 | Outpatient (CLI) | payer OTHER, MEDICARE | LOC: BMCIMAGING 09:57 | PROVIDERS: ATTEND Internal Medicine | DX: J84.9 Interstitial pulmonary disease, unspecified (principal) ==

== ENCOUNTER 2017-08-28 10:38 | Inpatient (IN) | payer OTHER, MEDICARE ==
--- NOTE | 2017-08-28 11:34 | EDPHY ---
H & P Stated Complaint: Productive cough for 2 weeks. Time Seen by Provider: 08/28/17 11:34 HPI/ROS: HPI: This 82-year-old male who presents with Chief Complaint: Productive cough for 2 weeks. Location: Chest Quality: Productive Cough Duration: 2 week Signs and Symptoms: No fever, no lower leg swelling, no chest pain, shortness of breath, no orthopnea, no paroxysmal nocturnal dyspnea, no abdominal pain no nausea, no vomiting, no indigestion Timing: Daily Severity: [id number] Context: Patient has a history of hypertension, coronary artery disease with that silent heart attack followed by Dr. Singh who is scheduled for angiogram in the next 2 weeks, interstitial lung disease. He complains of a productive cough x 2 weeks that is not worse at night. He denies shortness of breath/ lower extremity swelling/PND/orthopnea. He completed a course of Augmentin approximately 2 weeks ago with no relief. He has had no fevers. No sick contacts. He was recently started on omeprazole by his PCP for silent reflux as a cause for his persistent cough. Modifying Factors: See above Comment: ROS: see HPI Constitutional: No fever, no chills, no weight loss Eyes: No blurred vision Respiratory: No shortness of breath, + cough Cardiovascular: No chest pain Gastrointestinal: No nausea, no vomiting, no diarrhea Genitourinary: No dysuria Extremities: No myalgias Neurologic: No weakness, no numbness Skin: No rashes Hematologic: No bruising, no bleeding MEDICAL/SURGICAL/SOCIAL HISTORY: Medical history: ? silent heart attack/chronic resp issues/depression/htn/ hernia/strangulated bowel. Kidney dx. Surgical history: Denies Social history: . CONSTITUTIONAL: Pleasant well-appearing adult white male, awake and alert, no obvious distress HEENT: Atraumatic and normocephalic, PERRL, EOMI. Tympanic membranes clear. Oropharynx clear, no exudate and moist pink mucosa. Airway patent. No lymphadenopathy. No meningismus. Cardiovascular: Normal S1/S2, regular rate, regular rhythm, without murmur rub or gallop. PULMONARY/CHEST: Symmetrical and nontender. Diminished bilaterally. Good air movement. No accessory muscle usage. Fair air exchange. ABDOMEN: Soft, nondistended, nontender, no rebound, no guarding, no peritoneal signs, no masses or organomegaly. No CVAT. EXTREMITIES: 2/2 pulses, strength 5/5, no deformities, no clubbing, no cyanosis or edema. No calf pain. No negative Homans sign. NEUROLOGICAL: no focal neuro deficits. GCS 15. SKIN: Warm and dry, no erythema. no rash. Good capillary refill. Source: Patient Exam Limitations: No limitations - Personal History Current Tetanus Diphtheria and Acellular Pertussis (TDAP): Yes - Medical/Surgical History Hx Asthma: Yes Hx Chronic Respiratory Disease: Yes Hx Diabetes: No Hx Cardiac Disease: Yes Hx Renal Disease: Yes Hx Cirrhosis: No Hx Alcoholism: No Hx HIV/AIDS: No Hx Splenectomy or Spleen Trauma: No Other PMH: ? silent heart attack/chronic resp issues/depression/htn/hernia/ strangulated bowel. Kidney dx. - Social History Smoking Status: Former smoker Constitutional: Initial Vital Signs Heart Rate 81 08/28/17 10:56 Respiratory Rate 16 08/28/17 10:56 Blood Pressure 116/61 08/28/17 10:56 O2 Sat (%) 93 08/28/17 10:56 O2 Delivery Mode Room Air Allergies/Adverse Reactions: No Known Allergies Allergy (Unverified 02/14/17 13:39) Home Medications: Medication Instructions Recorded Albuterol [Proventil Inhaler HFA 2 puffs IH Q4-6PRN PRN 02/14/17 (*)] Amoxicillin/Clavulanate Pot 875 mg PO BID 02/14/17 [Augmentin 875 MG TAB (*)] Ascorbic Acid [Vitamin C 500 mg 500 mg PO DAILY 02/14/17 (*)] Aspirin [Aspirin 81mg (*)] 81 mg PO HS 02/14/17 Cholecalciferol Vit D3 [Vitamin D3 1,000 units PO DAILY 02/14/17 (*)] Citalopram [CeleXA 20 MG] 20 mg PO DAILY 02/14/17 Herbals/Supplements -Info Only 1 ea PO DAILY 02/14/17 Lisinopril [Zestril 10 mg (*)] 10 mg PO HS 02/14/17 Multivitamins [Multivitamin (*)] 1 each PO DAILY 02/14/17 [place]-3 Fatty Acids/Fish Oil 1 each PO DAILY 02/14/17 [[place] 3 1,000 mg Softgel] Tamsulosin HCl [Flomax 0.4 MG (*)] 0.8 mg PO HS 02/14/17 guaiFENesin/DEXTROMETHORPHAN 1 each PO BID 02/14/17 [Mucinex Dm ER 1,200-60 mg Tab] Azithromycin [Zithromax] 250 mg PO DAILY #3 tab 02/16/17 Benzonatate [Tessalon Pearles] 200 mg PO TID PRN #50 cap 02/16/17 Ipratropium/Albuterol [Duoneb (*)] 3 ml IH QID #120 deyvial 02/16/17 guaiFENesin [Mucinex 600 MG (*)] 1,200 mg PO BID #0 tab.er 02/16/17 Bupropion HCl [Bupropion HCl Sr] 150 mg PO BID #60 tablet.sa 02/17/17 Tears/Dextran 70/Hypromellose 1 drop EACHEYE Q2HRS PRN #0 02/17/17 [Natural Balance Tears (*)] opht.btl predniSONE 20 mg PO AD #23 tab 02/17/17 Medical Decision Making - Diagnostics Imaging Results: Imaging Impressions Chest X-Ray 08/28/17 12:46 Impression: Increased left greater than right basilar airspace opacities may represent a pneumonia with underlying chronic interstitial lung disease. ED Course/Re-evaluation: EKG, chest x-ray, labs, IV medications, nebulizer therapy ordered O2 sats noted to be 91-93% on room air upon arrival. Give Duoneb and IV Solumedrol 125 mg Afebrile and no systemic signs. 1217: Labs reviewed with leukocytosis of 22,000 Concern for community-acquired pneumonia with interstitial lung disease; chest x -ray shows increasing opacities left greater than right; IV Levaquin ordered. Creatinine 1.7; baseline seems to run around 1.5. 1305: ED decision to consult for admission for hypoxia and CAP. Spoke with hospitalist, Dr. Venkat Navas, who agreed to admit patient and provide further care. Differential Diagnosis: Shortness of breath including but not limited to pulmonary infectious process, COPD, asthma, pulmonary embolus and congestive heart failure. - Data Points Laboratory Results: Laboratory Results 08/28/17 11:40 08/28/17 11:40 08/28/17 08/28/17 08/28/17 12:31 11:40 11:40 WBC RBC Hgb Hct MCV MCH MCHC RDW Plt Count MPV Neut % (Auto) Lymph % (Auto) [place] % (Auto) Eos % (Auto) Baso % (Auto) Nucleat RBC Rel Count Absolute Neuts (auto) Absolute Lymphs (auto) Absolute Monos (auto) Absolute Eos (auto) Absolute Basos (auto) Absolute Nucleated RBC Immature Gran % Immature Gran # PT 13.2 SEC SEC (12.0-15.0) INR 1.01 (0.83-1.16) APTT 26.9 SEC SEC (23.0-38.0) D-Dimer 0.42 ug/mLFEU ug/mLFEU (0.00-0.50) VBG Lactic Acid 1.6 mmol/L mmol/L (0.7-2.1) Sodium 141 mEq/L mEq/L (134-144) Potassium 5.2 mEq/L mEq/L (3.5-5.2) Chloride 103 mEq/L mEq/L (97-110) Carbon Dioxide 26 mEq/l mEq/l (22-31) Anion Gap 12 mEq/L mEq/L (8-16) BUN 36 mg/dL H mg/dL (7-23) Creatinine 1.7 mg/dL H mg/dL (0.7-1.3) Estimated GFR 39 Glucose 100 mg/dL mg/dL (70-100) Calcium 9.5 mg/dL mg/dL (8.5-10.4) Total Bilirubin 0.6 mg/dL mg/dL (0.1-1.4) Conjugated Bilirubin 0.0 mg/dL mg/dL (0.0-0.5) Unconjugated Bilirubin 0.6 mg/dL mg/dL (0.0-1.1) AST 17 IU/L IU/L (17-59) ALT 27 IU/L IU/L (21-72) Alkaline Phosphatase 77 IU/L IU/L (38-126) Troponin I < 0.012 ng/mL ng/mL (0.000-0.034) NT-Pro-B Natriuret Pep 497 pg/mL H pg/mL (0-450) Total Protein 6.2 g/dL L g/dL (6.3-8.2) Albumin 3.6 g/dL g/dL (3.5-5.0) Lipase 84 IU/L IU/L (23-300) 08/28/17 11:40 WBC 22.28 10^3/uL H 10^3/uL (3.80-9.50) RBC 4.52 10^6/uL 10^6/uL (4.40-6.38) Hgb 13.6 g/dL L g/dL (13.7-17.5) Hct 40.3 % % (40.0-51.0) MCV 89.2 fL fL (81.5-99.8) MCH 30.1 pg pg (27.9-34.1) MCHC 33.7 g/dL g/dL (32.4-36.7) RDW 14.0 % % (11.5-15.2) Plt Count 277 10^3/uL 10^3/uL (150-400) MPV 10.3 fL fL (8.7-11.7) Neut % (Auto) 87.7 % H % (39.3-74.2) Lymph % (Auto) 5.3 % L % (15.0-45.0) [place] % (Auto) 5.7 % % (4.5-13.0) Eos % (Auto) 0.6 % % (0.6-7.6) Baso % (Auto) 0.3 % % (0.3-1.7) Nucleat RBC Rel Count 0.0 % % (0.0-0.2) Absolute Neuts (auto) 19.51 10^3/uL H 10^3/uL (1.70-6.50) Absolute Lymphs (auto) 1.19 10^3/uL 10^3/uL (1.00-3.00) Absolute Monos (auto) 1.28 10^3/uL H 10^3/uL (0.30-0.80) Absolute Eos (auto) 0.13 10^3/uL 10^3/uL (0.03-0.40) Absolute Basos (auto) 0.07 10^3/uL 10^3/uL (0.02-0.10) Absolute Nucleated RBC 0.00 10^3/uL 10^3/uL (0-0.01) Immature Gran % 0.4 % % (0.0-1.1) Immature Gran # 0.10 10^3/uL 10^3/uL (0.00-0.10) PT INR APTT D-Dimer VBG Lactic Acid Sodium Potassium Chloride Carbon Dioxide Anion Gap BUN Creatinine Estimated GFR Glucose Calcium Total Bilirubin Conjugated Bilirubin Unconjugated Bilirubin AST ALT Alkaline Phosphatase Troponin I NT-Pro-B Natriuret Pep Total Protein Albumin Lipase Medications Given: Levofloxacin/Dextrose (Levaquin 750 Mg (Premix)) 150 mls @ 100 mls/hr IV EDNOW ONE PRN Reason: Protocol Stop: 08/28/17 14:31 Last Admin: 08/28/17 13:08 Dose: 150 mls Discontinued Medications Albuterol/Ipratropium (Duoneb) 3 ml IH EDNOW ONE Stop: 08/28/17 12:11 Last Admin: 08/28/17 12:11 Dose: 3 ml Methylprednisolone Sodium Succinate (Solu-Medrol) 125 mg IVP EDNOW ONE Stop: 08/28/17 13:43 Last Admin: 08/28/17 13:53 Dose: 125 mg Departure - Departure Disposition: [facility] Inpatient Acute Clinical Impression: Interstitial lung disease, Failure of outpatient treatment Community acquired pneumonia Qualifiers: Laterality: left Lung location: unspecified part of lung Qualified Code(s): J18.9 - Pneumonia, unspecified organism
[2017-08-28] MEDS ORDERED: IPRATROPIUM/ALBUTEROL 3 ML DEYVIAL ONE (11:36)
[2017-08-28 11:55] LABS: % IMMATURE GRANULYOCYTES 0.4 % (0.0-1.1); ADD DIFF? NO; ADD MORPH? NO; ADD SCAN? NO; ATYPICAL LYMPHOCYTE FLAG 0 (0-99); FRAGMENT RBC FLAG 0 (0-99); HEMATOCRIT 40.3 % (40.0-51.0); HEMOGLOBIN 13.6 g/dL (13.7-17.5); LEFT SHIFT FLG 0 (0-99); LIPEMIA HEMOLYSIS FLAG 80 (0-99); MEAN CELL HEMOGLOBIN 30.1 pg (27.9-34.1); MEAN CELL HEMOGLOBIN CONCENTR. 33.7 g/dL (32.4-36.7); MEAN CELL VOLUME 89.2 fL (81.5-99.8); MEAN PLATELET VOLUME 10.3 fL (8.7-11.7); PLATELET CLUMPS FLAG 0 (0-99); PLATELET COUNT 277 10^3/uL (150-400); RED BLOOD CELL COUNT 4.52 10^6/uL (4.40-6.38)
--- NOTE | 2017-08-28 12:03 | CPEKG ---
Heart Rate: 71 RR Interval: 845 P-R Interval: 160 QRSD Interval: 84 QT Interval: 384 QTC Interval: 418 P [place]: 80 QRS [place]: -20 T Wave [place]: 43 EKG Severity - OTHERWISE NORMAL ECG - EKG Impression: SINUS RHYTHM EKG Impression: BORDERLINE LEFT AXIS DEVIATION Electronically Signed By: Kareem Joy 28-Aug-2017 14:56:02
[2017-08-28 12:04] LABS: INR 1.01 (0.83-1.16); PROTIME(PATIENT) 13.2 SEC (12.0-15.0)
[2017-08-28 12:05] LABS: APTT 26.9 SEC (23.0-38.0)
[2017-08-28] MEDS ORDERED: IPRATROPIUM/ALBUTEROL 3 ML DEYVIAL IH ONE (12:10)
[2017-08-28 12:18] LABS: ALANINE AMINOTRANSFERASE 27 IU/L (21-72); ALBUMIN 3.6 g/dL (3.5-5.0); ALKALINE PHOSPHATASE 77 IU/L (38-126); ANION GAP 12 mEq/L (8-16); ASPARTATE AMINOTRANSFERASE 17 IU/L (17-59); BILIRUBIN,TOTAL 0.6 mg/dL (0.1-1.4); BILIRUBIN-UNCONJUGATED 0.6 mg/dL (0.0-1.1); CALCIUM 9.5 mg/dL (8.5-10.4); CARBON DIOXIDE 26 mEq/l (22-31); CHLORIDE 103 mEq/L (97-110); CREATININE 1.7 mg/dL (0.7-1.3); GLOMERULAR FILTRATION RATE 39; GLUCOSE 100 mg/dL (70-100); POTASSIUM 5.2 mEq/L (3.5-5.2); SODIUM 141 mEq/L (134-144); TOTAL PROTEIN 6.2 g/dL (6.3-8.2)
[2017-08-28 12:30] LABS: TROPONIN I < 0.012 ng/mL (0.000-0.034)
[2017-08-28] MEDS ORDERED: methylPREDNISolone SOD SUCC 125 MG/2 ML VIAL IVP ONE (13:42)
[2017-08-28] MEDS ORDERED: ACETAMINOPHEN 325 MG TAB PO PRN (14:52)
[2017-08-28] MEDS ORDERED: ALBUTEROL 3 ML DEYVIAL IH PRN (14:52)
[2017-08-28] MEDS ORDERED: ONDANSETRON DISINTEGRATING 4 MG TAB PO PRN (14:52)
[2017-08-28] MEDS ORDERED: ONDANSETRON 4 MG/2 ML VIAL IVP PRN (14:52)
[2017-08-28] MEDS ORDERED: NS 1,000 ML IV SCH (15:15)
--- NOTE | 2017-08-28 15:44 | GHP ---
[f rep st] HISTORY AND PHYSICAL DATE OF ADMISSION: 08/28/2017 HISTORY OF PRESENT ILLNESS: The patient is a pleasant 82-year-old gentleman with history of intersti tial lung disease diagnosed in February of this year who presents with a cough. It sounds like he has rec ently seen his outpatient doctor, where he was given Augmentin and 4 days of steroids with no change in his symptoms. He has a chronic cough that is dry, but it has gotten worse and now become producti ve of blake sputum. It is difficult to get out. He has not had fever or chills. He notes increased dyspnea on exertion. He has not had lower extremity edema, PND, or orthopnea. He does have an angio gram scheduled for evaluation of some shortness of breath. He had a CT of his chest here in February that showed nonspecific interstitial pneumonia. I have reviewed/interpreted those images myself. Today he presents with increased shortness of breath, leukocytosis. His white count was 16 a couple days a go and is now 22. He does not have diarrhea. REVIEW OF SYSTEMS: Complete 10-point review of systems conducted, negative except as noted in the HP I. PAST MEDICAL HISTORY: 1. Hypertension. 2. Interstitial lung disease. 3. BPH. 4. 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 ALLERGIES: No known drug allergies. HOME MEDICATIONS: Tamsulosin, pravastatin, fish oil, multivitamin, lisinopril, citalopram, vitamin D 3, methylfolate, bupropion, aspirin, ascorbic acid. SOCIAL HISTORY: Smoked remotely, does not now. Just recently relocated to [place] from [facility]. FAMILY HISTORY: Parents . PHYSICAL EXAMINATION: VITAL SIGNS: Temp 37.8, blood pressure 121/64, pulse 81, breathing 16 times a minute, 95% on room air. GENERAL: No acute distress. HEENT: Sclerae anicteric. Oropharynx clear . Mucous membranes are moist. NECK: Supple without lymphadenopathy or JVD. LUNGS: Rhonchorous br eath sounds with inferior crackles bilaterally. ABDOMEN: Soft, nontender, nondistended. LOWER EXTR EMITIES: Without edema. Calves nontender. SKIN: Without rash. NEUROLOGIC: Nonfocal. LABS: White count of 22 with a left shift, hematocrit is 40.3, platelets are 277,000. Coags are nor mal. D-dimer is 0.42, which is normal value. Venous lactate is 1.6. Sodium 141, potassium 5.2, chl oride 103, bicarb 26, BUN 36, creatinine 1.7, which is a little higher than his baseline. LFTs marlene l. BNP is 497. Protein 6.2. Chest x-ray, interpreted by me, shows interstitial lung disease bilate rally and possible left lower lobe pneumonia. I have reviewed/interpreted the images myself. I have discussed the case with Samanta Chaudhari of the emergency department. ASSESSMENT/PLAN: This is an 82-year-old male with interstitial lung disease, with likely superimpose d pneumonia. 1. Pneumonia. I suspect this patient has pneumonia, but will check for a viral syndrome. Started o n levofloxacin. Recently failed Augmentin. I will continue that. I will add scheduled DuoNeb as he said he felt much better after receiving that, and I will give him 40 mg of prednisone daily. He re ceived 125 mg of Solu-Medrol. 2. Interstitial lung disease. I will apprise his outpatient government auditor, Dr. Eliud Garcia, that he w as admitted. 3. Dyspnea on exertion. He has an outpatient plan for working up his cardiac cause. He does not ro ve edema to suggest heart failure at this time. We will follow. 4. Prophylaxis. Pharmacologic prophylaxis indicated. 5. Dry cough. I will discontinue his lisinopril and start an ARB. It sounds like he has done this in the past, but he does not really recall the results. 6. Disposition: Inpatient status. /[id number]/MODL
[2017-08-28] MEDS: IPRATROPIUM/ALBUTEROL 3 ML DEYVIAL IH SCH ×2 (16:10→21:30)
--- NOTE | 2017-08-28 16:12 | PDMN ---
Medical Necessity Medical necessity: C/M review: est. > 2 MN LOS for eval and TX of acute and persistent suspected pneumonia, dyspnea on exertion, dry cough(likely from dafne inhibitor, IV fluids x 1 bag, requiring ongoing IV Levaquin, Duonebs, pulse oximetry, acute inpt PT/OT, comorbid interstitial lung disease, hypertension, recently failed oral Augmentin per H/P.
[2017-08-28] MEDS: buPROPion SR 150 MG TAB PO SCH (20:47)
[2017-08-28] MEDS ORDERED: ASPIRIN 81 MG CHEWABLE TAB PO SCH (21:00)
[2017-08-28] MEDS ORDERED: PRAVASTATIN SODIUM 40 MG TAB PO SCH (21:00)
[2017-08-28] MEDS ORDERED: BUPROPION HCL 150 MG PO SCH (21:00)
[2017-08-28] MEDS ORDERED: TAMSULOSIN HCL 0.4 MG CAP PO SCH (21:00)
[2017-08-29] MEDS ORDERED: GUAIFENESIN/DM 10 ML UDCUP PO PRN (02:06)
[2017-08-29 04:50] LABS: % IMMATURE GRANULYOCYTES 0.4 % (0.0-1.1); ABSOLUTE IMMATURE GRANULOCYTES 0.07 10^3/uL (0.00-0.10); ADD DIFF? NO; ADD MORPH? NO; ADD SCAN? NO; ATYPICAL LYMPHOCYTE FLAG 0 (0-99); FRAGMENT RBC FLAG 0 (0-99); HEMOGLOBIN 11.3 g/dL (13.7-17.5); LEFT SHIFT FLG 0 (0-99); LIPEMIA HEMOLYSIS FLAG 80 (0-99); MEAN CELL HEMOGLOBIN 29.4 pg (27.9-34.1); MEAN CELL HEMOGLOBIN CONCENTR. 33.2 g/dL (32.4-36.7); MEAN CELL VOLUME 88.5 fL (81.5-99.8); MEAN PLATELET VOLUME 10.7 fL (8.7-11.7); PLATELET CLUMPS FLAG 10 (0-99); PLATELET COUNT 265 10^3/uL (150-400); RED BLOOD CELL COUNT 3.84 10^6/uL (4.40-6.38); RED CELL DISTRIBUTION WIDTH 14.3 % (11.5-15.2)
[2017-08-29 05:03] LABS: ANION GAP 9 mEq/L (8-16); CARBON DIOXIDE 24 mEq/l (22-31); CHLORIDE 109 mEq/L (97-110); CREATININE 1.5 mg/dL (0.7-1.3); GLOMERULAR FILTRATION RATE 45; GLUCOSE 137 mg/dL (70-100); POTASSIUM 4.9 mEq/L (3.5-5.2); SODIUM 142 mEq/L (134-144)
[2017-08-29] MEDS: IPRATROPIUM/ALBUTEROL 3 ML DEYVIAL IH SCH ×2 (06:01→10:37)
[2017-08-29 07:39] VITALS: RESP 20
[2017-08-29] MEDS ORDERED: LOSARTAN POTASSIUM 25 MG TAB PO SCH (09:00)
[2017-08-29] MEDS ORDERED: MULTIVITAMINS 1 EACH TAB PO SCH (09:00)
[2017-08-29] MEDS ORDERED: NON-FORMULARY NEW DRUG (Omega-3 Fatty Acids/Fish Oil [Omega 3 1,000 Mg Softgel] 1 EACH) PO SCH (09:00)
[2017-08-29] MEDS ORDERED: CHOLECALCIFEROL VIT D3 1,000 UNITS TAB PO SCH (09:00)
[2017-08-29] MEDS ORDERED: LOSARTAN POTASSIUM 50 MG TAB PO SCH (09:00)
[2017-08-29] MEDS ORDERED: ASCORBIC ACID 500 MG TAB PO SCH (09:00)
[2017-08-29] MEDS ORDERED: OMEGA-3 FATTY ACIDS 1,000 MG CAP PO SCH (09:00)
[2017-08-29] MEDS ORDERED: CITALOPRAM 20 MG TAB PO SCH (09:00)
[2017-08-29] MEDS ORDERED: ENOXAPARIN 40 MG/0.4 ML SYR SC SCH (09:00)
[2017-08-29] MEDS ORDERED: predniSONE 20 MG TAB PO SCH (09:00)
[2017-08-29] MEDS ORDERED: METHYLFOLATE 15 MG PO SCH (09:00)
[2017-08-29] MEDS ORDERED: ENOXAPARIN 30 MG/0.3 ML SYR SC SCH (09:00)
[2017-08-29] MEDS ORDERED: Herbals/Supplements -Info Only PO SCH (09:00)
[2017-08-29] MEDS: buPROPion SR 150 MG TAB PO SCH (09:51)
[2017-08-29 11:56] VITALS: BP 122/56; PULSE 71; TEMP 97.9; O2SAT 91
--- NOTE | 2017-08-29 12:10 | ASMTCASEMG ---
Living Arrangements What is your living Answers: With Spouse arrangement? Who do you live with? Type Of Residence What kind of residence do Answers: House you live in? Discharge Plan Comments Coordination Status Comments Notes: Pt is a 82 y/o man admitted for CAP, ILD and hypoxia. Pt is currently on IV antibiotics but will most likely discharge independent w/ oral meds. Pt lives independently w/ his prior coming to the hospital. No therapies ordered at this time. CM available for d/c needs. Plan: independent Date Signed: 08/29/2017 12:10 PM Electronically Signed By:JANICE Mathur
--- NOTE | 2017-08-29 15:08 | GDS ---
[f rep st] DISCHARGE SUMMARY DISCHARGE DIAGNOSES: 1. Community-acquired pneumonia. 2. Chronic interstitial lung disease. 3. Hypertension. 4. Benign prostatic hypertrophy. 5. Suspected SOPHIE inhibitor-related cough. HISTORY OF PRESENT ILLNESS: An 82-year-old male with a recent diagnosis of interstitial lung disease , who presents with ongoing cough. For details of the patient's initial presentation, please see the history and physical dated 08/28/2017. PROCEDURES: On 08/28, patient had a PA/lateral chest x-ray that confirmed possible evolving lower lo be infiltrate. CONSULTATIVE SERVICES: Pulmonary, Dr. Luong. HOSPITAL COURSE BY ISSUE: 1. Presumed community-acquired pneumonia secondary to new infiltrate on chest x-ray, cough, and leuk ocytosis. Patient was initiated on levofloxacin with improvement in his symptoms. Patient will comp lete a full 7-day course. Blood cultures drawn on the day of presentation are currently no growth to date. Patient will follow in the outpatient setting with Pulmonary/Critical Care. 2. Interstitial lung disease. Patient will additionally be started on a prednisone burst and taper. Again to follow in the outpatient setting with Pulmonary post disposition of his prednisone course. 3. Hypertension. Patient is having his SOPHIE inhibitor switched to an ARB during this hospital stay t o see if it has any impact on the chronic cough he is reporting. 4. BPH. He was continued on his home medications without change. MEDICATIONS AT THE TIME OF DISPOSITION: Please reference the med rec printed on 08/29/2017. PENDING STUDIES: No pending studies at the time of this dictation. FOLLOWUP APPOINTMENTS: Include with Pulmonary in the next 4-6 weeks post completion of his antibioti c course and steroid taper. I spent greater than 30 minutes in the planning and coordination of this discharge. /[id number]/MODL
--- NOTE | 2017-08-29 15:43 | ASDISCHSUM ---
Discharge Information Plan Status:Home with No Needs Medically Cleared to Leave:08/28/2017 Discharge Date:08/29/2017 03:15 PM CM D/C Disposition: ADT D/C Disposition:Home, Routine, Self-Care Projected Discharge Date:08/29/2017 12:00 AM Transportation at D/C: Discharge Delay Reason: Follow-Up Date:08/29/2017 12:00 AM Discharge Slot: Final Diagnosis: Placement Information Patient Contact Information Contact Name:SUKHI Relationship: Address:[address] [place] Work Phone: City:[place] Alternate Phone: [facility]/Zip Code:[place] [address] Email: Financial Information Financial Class: Primary Plan Desc:MEDICARE INPATIENT Primary Plan Number:[id number] Secondary Plan Desc:[employer]/MDR SUPPLEMENT Secondary Plan Number:[id number] Assessment Information [facility] Initial CM Assessment Living Arrangements What is your living Answers: With Spouse arrangement? Who do you live with? Type Of Residence What kind of residence do Answers: House you live in? Discharge Plan Comments Coordination Status Comments Notes: Pt is a 82 y/o man admitted for CAP, ILD and hypoxia. Pt is currently on IV antibiotics but will most likely discharge independent w/ oral meds. Pt lives independently w/ his prior coming to the hospital. No therapies ordered at this time. CM available for d/c needs. Plan: independent Date Signed: 08/29/2017 12:10 PM Electronically Signed By:JANICE Mathur Intervention Information Intervention Type:*IM-Signed Date of Service:08/29/2017 03:07 PM Patient Type:Inpatient Staff Member:JANICE Leon Michelle Hours: Discipline: Severity: Comment:
--- NOTE | 2017-08-29 16:23 | GCON ---
[f rep st] CONSULTATION PULMONARY CONSULTATION REASON FOR CONSULTATION: Cough. HISTORY: The patient is an 82-year-old gentleman who is known to our service. He was admitted in [facility] with an atypical bibasilar pneumonia. He was felt possibly to have interstitial lung disease; how ever, followup CT scan of the chest showed near-complete resolution of interstitial changes, with demetria e mild areas of postinflammatory scarring at the bases. [facility] Pulmonary function studies done on his last visit in May were within normal limits. He presented to the emergency department yesterday with cough and some mild dyspnea on exertion. He had been given Augmentin a few days previously. He does have a small amount of sputum. He feels thi s is coming, however, from his nose and produces congestion in his throat. He does a lot of voluntar y coughing and voluntary throat clearing. This apparently has been present for several months. On admission to the emergency department, he received a DuoNeb with significant benefit. He has been treated with Levaquin and with steroids. He feels much better. His cough is better, nasal congesti on better. He has no fevers or chills. He is not currently bringing up any sputum. PAST MEDICAL HISTORY: Remarkable for hypertension. He does not have a history of interstitial lung disease per se. Please see the comments in the HPI. Other problems include prostatic hypertrophy an d Cipriano-induced cough. He is now treated with Cozaar. SOCIAL HISTORY: He is and a retired pharmacist. He is from [place]. Significant alcoho l is denied. Exposures are negative. FAMILY HISTORY: Noncontributory. REVIEW OF SYSTEMS: A 10-point review of systems is negative except as noted in the HPI. PHYSICAL EXAMINATION: GENERAL: A pleasant gentleman who is sitting comfortably in bed. He is not c oughing. He will occasionally clear his throat. VITAL SIGNS: Blood pressure is 122/56, heart rate 75 and regular. Room air saturations were in the low-to-mid 90s. He is afebrile. HEENT: Remarkabl e for mild nasal congestion. There is no obvious postnasal drainage. NECK: No lymphadenopathy or t hyromegaly. CHEST: Definitely clear on the left. There may be a rare rale at the right base. No w heezing, no signs of consolidation, no rhonchi. There is no congestion with voluntary cough. HEART: Regular rate and rhythm without significant murmur or gallop. ABDOMEN: Soft, nontender. Bowel so unds are present. EXTREMITIES: Unremarkable for edema or cords. NEUROLOGIC: Intact. DIAGNOSTICS: Chest x-ray was reviewed. There is some mild bibasilar increased markings, consistent with known postinflammatory fibrotic changes. ASSESSMENT: 1. Cough: The patient appears to have a mild bronchitis. He is being treated with Levaquin, predni sone, and DuoNeb. With initiation of this treatment, his symptoms have rapidly resolved, and he is e ssentially back to baseline. There is no evidence of pneumonia and no evidence of bronchospasm or si gnificant ongoing bronchial congestion. He will go home on Levaquin and a prednisone taper. He has a nebulizer at home for DuoNeb. He did not fill a ProAir inhaler previously because it was not on hi s formulary. Ventolin may be on that formulary. He could perhaps also benefit from a Combivent Resp imat. I will have him follow up with Dr. Garcia as an outpatient. Spirometry pre- and post-bronchodi lator should be repeated. 2. Basilar mild fibrotic change: There is no definite evidence of interstitial lung disease per se. His changes are felt to be secondary to previous atypical pneumonia with some post inflammatory fib rotic disease, which is mild, at the bases. Pulmonary function studies done recently were entirely w ithin normal limits. 3. Cough: This has been a chronic problem, worse with this mild bronchitis. Nasal congestion and d rainage are clearly playing a role. He also has a habitual cough with throat clearing as well as vol untary cough to get rid of the sensation of phlegm in his throat. Behavioral modification is recomme nded, along with water sips, lozenges, etc. Nasal therapy should be continued including nasal saline rinses and topical nasal steroids. PLAN/RECOMMENDATIONS: The patient will be discharged home today. Levaquin will be given for a total of 5-7 days. Prednisone will be tapered by 10 mg every 2 days. DuoNeb can be used as needed. A Co mbivent Respimat should be considered. In the future, a trial of inhaled steroids could be considere d. I would like him to follow back up in our office with Dr. Garcia in the next 2-3 weeks. Spirometr y should be repeated pre- and post-bronchodilator at that visit. All of the above was discussed with the patient, his , and Dr. Reyes. /[id number]/MODL
== END 2017-08-29 15:15 | disposition home or self-care (01) | DRG 194 ==
LOC: F3E 14:19
PROVIDERS: ADMIT Internal Medicine; ATTEND Internal Medicine
DX: J18.9 Pneumonia, unspecified organism (principal); J84.9 Interstitial pulmonary disease, unspecified; I25.10 Atherosclerotic heart disease of native coronary artery without angina pectoris; N40.0 Benign prostatic hyperplasia without lower urinary tract symptoms; I10 Essential (primary) hypertension; I25.2 Old myocardial infarction
CPT/HCPCS: 96365; J1650; J1956; J2930

== ENCOUNTER 2017-09-08 06:19 | Inpatient (IN) | payer OTHER, MEDICARE ==
[2017-09-08] MEDS ORDERED: ASPIRIN EC 325 MG TAB PO ONE ×3 (06:23→09:27)
[2017-09-08] MEDS ORDERED: NS 1,000 ML IV ONE (06:23)
[2017-09-08] MEDS ORDERED: diphenhydrAMINE 25 MG CAP PO ONE ×3 (06:23→09:27)
[2017-09-08] MEDS ORDERED: FAMOTIDINE 20 MG TAB PO ONE ×3 (06:23→09:27)
[2017-09-08] MEDS ORDERED: DIAZEPAM 5 MG TAB PO ONE ×3 (06:23→09:27)
--- NOTE | 2017-09-08 06:55 | CPEKG ---
Heart Rate: 58 RR Interval: 1034 P-R Interval: 160 QRSD Interval: 88 QT Interval: 444 QTC Interval: 437 P [place]: 84 QRS [place]: -15 T Wave [place]: 39 EKG Severity - OTHERWISE NORMAL ECG - EKG Impression: SINUS RHYTHM EKG Impression: BORDERLINE LEFT AXIS DEVIATION Electronically Signed By: Marco Giles 09-Sep-2017 23:13:14
[2017-09-08 07:11] LABS: % IMMATURE GRANULYOCYTES 1.4 % (0.0-1.1); ADD DIFF? NO; ADD MORPH? NO; ADD SCAN? NO; ATYPICAL LYMPHOCYTE FLAG 0 (0-99); FRAGMENT RBC FLAG 0 (0-99); HEMOGLOBIN 14.1 g/dL (13.7-17.5); LEFT SHIFT FLG 10 (0-99); LIPEMIA HEMOLYSIS FLAG 80 (0-99); MEAN CELL HEMOGLOBIN 29.4 pg (27.9-34.1); MEAN CELL HEMOGLOBIN CONCENTR. 33.6 g/dL (32.4-36.7); MEAN CELL VOLUME 87.7 fL (81.5-99.8); MEAN PLATELET VOLUME 9.5 fL (8.7-11.7); PLATELET CLUMPS FLAG 0 (0-99); PLATELET COUNT 348 10^3/uL (150-400); RED BLOOD CELL COUNT 4.79 10^6/uL (4.40-6.38); RED CELL DISTRIBUTION WIDTH 14.1 % (11.5-15.2)
[2017-09-08 07:23] LABS: INR 0.95 (0.83-1.16); PROTIME(PATIENT) 12.9 SEC (12.0-15.0)
[2017-09-08 07:37] LABS: ANION GAP 10 mEq/L (8-16); CALCIUM 9.2 mg/dL (8.5-10.4); CARBON DIOXIDE 26 mEq/l (22-31); CHLORIDE 106 mEq/L (97-110); CHOLESTEROL 162 mg/dL (140-220); CHOLESTEROL/HDL RATIO 2.95 RATIO (1.00-4.97); CREATININE 1.5 mg/dL (0.7-1.3); GLOMERULAR FILTRATION RATE 45; GLUCOSE 80 mg/dL (70-100); HIGH DENSITY LIPOPROTEIN 55 mg/dL (40-65); LDL/HDL RATIO 1.49 RATIO (1.00-3.64); LOW DENSITY LIPOPROTEIN 82 mg/dL (80-100); NON-HIGH DENSITY LIPOPROTEIN 107 mg/dL (90-129); POTASSIUM 4.1 mEq/L (3.5-5.2); SODIUM 142 mEq/L (134-144); TRIGLYCERIDE 125 mg/dL (40-150); VERY LOW DENSITY LIPOPROTEINS 25 mg/dL (8-25)
--- NOTE | 2017-09-08 08:45 | PDGENHP ---
History and Physical History and Physical: he has cp with walking stairs and abnl nuc ett exam ; benign all ? navdeep wishes to proceed w cath n see attached office notes no change from earlier findings in hosp w infection 2 weeks ago - see rec for details much improved wishes to proceed
[2017-09-08] MEDS ORDERED: fentaNYL 100 MCG/2 ML INJ ONE (08:46)
[2017-09-08] MEDS ORDERED: MIDAZOLAM 2 MG/2 ML VIAL ONE (08:46)
[2017-09-08] MEDS ORDERED: LIDOCAINE 1% 300 MG/30 ML SDV ONE (08:46)
[2017-09-08] MEDS ORDERED: IOPAMIDOL (ISOVUE-370) 150 ML BTL IV ONE (08:47)
--- NOTE | 2017-09-08 09:05 | PDPROPOC ---
Sedation Plan of Care Sedation Plan of Care: vital signs stable, mental status noted, patient educated of risks, benefits, alternatives, patient can tolerate sedation ASA Classification: ASA 2 Planned drugs: fentanyl, midazolam Mallampati Score: Class 1 Mallampati Reference Image: Patient passed 3-3-2 rule?: Yes
[2017-09-08] MEDS ORDERED: ACETAMINOPHEN 325 MG TAB PO PRN ×2 (09:21→09:27)
[2017-09-08] MEDS ORDERED: NITROGLYCERIN 0.4 MG BTL SL PRN ×3 (09:21→09:27)
[2017-09-08] MEDS ORDERED: TEMAZEPAM 15 MG CAP PO PRN ×2 (09:21→09:27)
[2017-09-08] MEDS ORDERED: ONDANSETRON 4 MG/2 ML VIAL IVP PRN (09:23)
[2017-09-08] MEDS ORDERED: HYDROCODONE/APAP 5/325 TAB PO PRN (09:23)
[2017-09-08] MEDS ORDERED: ATROPINE SULFATE 1 MG/10 ML SYR IVP PRN (09:23)
[2017-09-08] MEDS ORDERED: OXYCODONE/APAP 5/325 TAB PO PRN (09:23)
[2017-09-08] MEDS ORDERED: NS 1,000 ML IV SCH (09:30)
--- NOTE | 2017-09-08 16:44 | ASMTCMCOM ---
CM Note CM Note Notes: 09/08/2017 Case Management Note Reviewed chart. Pt admitted for cath. Previous hospital stay on 08/28 d/c home independent. There are no PT or OT evals ordered. Case Management d/c poc: anticipating independent d/c when medically stable with follow up as directed. Case Management available if needs change. Date Signed: 09/08/2017 04:44 PM Electronically Signed By:Bobbi Altman RN
--- NOTE | 2017-09-08 20:10 | CPIP ---
[f rep st] INVASIVE CARDIAC PROCEDURE PROCEDURE PERFORMED: Left and right coronary angiography. INDICATIONS: The patient has a history of discomfort with exerting himself that has been getting mor e pronounced. He thought for the longest time it was GI related, however, could be angina. He has finally agreed to proceed with angiography. He has an abnormal nuclear stress test done in the office which shows a moderate size reversible defe ct involving the lateral wall. He had normal left ventricular systolic function. His past history includes class 3 renal insufficiency and is followed by Dr. Mera for this problem. Going into the procedure, his creatinine is 1.5. He has recently been in the hospital with a pneumonia and was treated with steroids and antibiotics. He is improving from that and wants to proceed with the test today. I have informed him that he is at higher risk than normal because of his recent hospitalization, but especially also because of his renal insufficiency and the risk exists that we could make his renal function significantly worse wit h this procedure. He is aware of that and wants to proceed. PROCEDURE: Left and right coronary angiography: Right coronary angiogram shows a nondominant right vessel with severe 85% to 90% stenosis in the mid distal proximal and somewhat into the distal segment. His left main coronary artery is normal. His left anterior descending artery has multiple 85% to 90% stenosis in the mid section. He has a dominant circumflex coronary artery that has intimal disease and perhaps 1 or 2 regions were it is 15% stenotic. A left ventriculogram was not done because of the elevated creatinine. The patient tolerated the procedure excellently. The films have been reviewed with the interventional service and the plan is to take him off the tabl e for now and continue to hydrate him and then bring him back tomorrow for elective angioplasty of hi s left anterior descending artery. I have talked to him and his about this and I have answered all their questions. I think he oniel uld do very well with this procedure. He has renal followup scheduled for next Thursday. All questions have been answered. COMPLICATIONS: None. CONDITION AT THE END OF THE STUDY: Excellent. DIAGNOSIS: Coronary artery disease. /[id number]/MODL
[2017-09-08] MEDS ORDERED: BUPROPION HCL 150 MG PO SCH (21:00)
[2017-09-08] MEDS: ASPIRIN 81 MG CHEWABLE TAB PO SCH (21:32)
[2017-09-08] MEDS: PRAVASTATIN SODIUM 40 MG TAB PO SCH (21:33)
[2017-09-08] MEDS: TAMSULOSIN HCL 0.4 MG CAP PO SCH (21:34)
[2017-09-08] MEDS: buPROPion SR 150 MG TAB PO SCH (21:34)
[2017-09-09 04:50] LABS: ABSOLUTE IMMATURE GRANULOCYTES 0.16 10^3/uL (0.00-0.10); ADD DIFF? NO; ADD MORPH? NO; ADD SCAN? NO; ATYPICAL LYMPHOCYTE FLAG 0 (0-99); FRAGMENT RBC FLAG 0 (0-99); HEMATOCRIT 36.3 % (40.0-51.0); HEMOGLOBIN 12.1 g/dL (13.7-17.5); LEFT SHIFT FLG 10 (0-99); LIPEMIA HEMOLYSIS FLAG 80 (0-99); MEAN CELL HEMOGLOBIN 29.6 pg (27.9-34.1); MEAN CELL HEMOGLOBIN CONCENTR. 33.3 g/dL (32.4-36.7); MEAN CELL VOLUME 88.8 fL (81.5-99.8); PLATELET CLUMPS FLAG 0 (0-99); PLATELET COUNT 302 10^3/uL (150-400); RED BLOOD CELL COUNT 4.09 10^6/uL (4.40-6.38); RED CELL DISTRIBUTION WIDTH 14.3 % (11.5-15.2)
[2017-09-09] MEDS ORDERED: NS 1,000 ML IV SCH (05:00)
[2017-09-09 05:05] LABS: ANION GAP 8 mEq/L (8-16); CALCIUM 8.6 mg/dL (8.5-10.4); CARBON DIOXIDE 26 mEq/l (22-31); CHLORIDE 105 mEq/L (97-110); CREATININE 1.4 mg/dL (0.7-1.3); GLOMERULAR FILTRATION RATE 49; GLUCOSE 67 mg/dL (70-100); POTASSIUM 4.4 mEq/L (3.5-5.2); SODIUM 139 mEq/L (134-144)
[2017-09-09] MEDS ORDERED: Herbals/Supplements -Info Only PO SCH (09:00)
[2017-09-09] MEDS ORDERED: NON-FORMULARY NEW DRUG (Omega-3 Fatty Acids/Fish Oil [Omega 3 1,000 Mg Softgel] 1 EACH) PO SCH (09:00)
[2017-09-09] MEDS ORDERED: D50W 25 GM/50 ML SYR IVP ONE (10:30)
[2017-09-09] MEDS ORDERED: D50W 25 GM/50 ML VIAL ONE (10:43)
[2017-09-09] MEDS: CITALOPRAM 20 MG TAB PO SCH (10:49)
[2017-09-09] MEDS: LOSARTAN POTASSIUM 50 MG TAB PO SCH (10:50)
[2017-09-09] MEDS: CHOLECALCIFEROL VIT D3 1,000 UNITS TAB PO SCH (10:50)
[2017-09-09] MEDS: ASCORBIC ACID 500 MG TAB PO SCH (10:50)
[2017-09-09] MEDS: MULTIVITAMINS 1 EACH TAB PO SCH (10:50)
[2017-09-09] MEDS: METHYLFOLATE PO SCH (10:50)
[2017-09-09] MEDS: OMEGA-3 FATTY ACIDS 1,000 MG CAP PO SCH (10:50)
[2017-09-09] MEDS: buPROPion SR 150 MG TAB PO SCH ×2 (10:50→21:45)
[2017-09-09] MEDS: predniSONE 10 MG TAB PO SCH (10:51)
--- NOTE | 2017-09-09 11:32 | PDCARPN ---
Cardiology Progress Note Chief Complaint: chest pain Assessment/Plan: Assessment: CAD s/p Angiogram yesterday. Needs PCI of the LAD to be done today. Delayed due to known CRI. No chest pain today. No ischemic changes on telemetry. He is NPO for PCI today. His BS gets low when he does not eat regularly. He has a H/A. Will give him dextrose fluid IVP this AM. CRI. Baseline Cr 1.4. Today Cr level is 1.4 down from 1.5 yesterday. Plan:PCI with Dr Jonel Smapson scheduled for 2 pm this afternoon. 09/09/17 11:22 Subjective: I have a H/A due to no food this morning and my Blood sugar gets too low. No chest pain or SOB. Reviewed/Discussed With: family, multidisciplinary team (Dr Sampson) Time Spent With Patient: 30 minutes Objective: Vital Signs (8 Hrs) Temp Pulse Resp BP Pulse Ox 09/09/17 08:00 36.5 C 57 L 16 133/69 H 92 09/09/17 04:00 36.9 C 55 L 16 149/77 H 92 Intake/Output (24 Hrs) 09/08/17 09/09/17 09/10/17 05:59 05:59 05:59 Intake Total 2058 Output Total 425 Balance 1633 Intake: Oral (ml) 858 IV Intake (ml) 600 IV Infused (ml) 600 Ns 1,000 ml @ 125 mls/hr 600 IV CONT FABIOLA Rx#: [id number] Output: Urine (ml) 425 Urinal 425 Other: Weight 72.575 kg Number of Voids Urinal 2 Result Diagrams: 09/09/17 03:56 09/09/17 03:56 - Physical Exam Cardiovascular: regular rate and rhythm, no murmurs, no rubs, no gallops Respiratory: clear to auscultate bilat, no crackles, no wheezes Skin: warm, no edema Neurologic: AAOx3 Psychiatric: cooperative, interactive ICD10 Worksheet Patient Problems: Problems Problem Status Onset CHF (congestive heart failure) Acute Community acquired pneumonia Acute Dental abscess Acute Depression Acute Dyspnea on exertion Acute Failure of outpatient treatment Acute Interstitial lung disease Acute chronic disease mgmt/transitional care Acute
[2017-09-09] MEDS ORDERED: FAMOTIDINE 20 MG TAB ONE (14:18)
[2017-09-09] MEDS ORDERED: ASPIRIN 325 MG TAB ONE (14:18)
[2017-09-09] MEDS ORDERED: diphenhydrAMINE 25 MG CAP PO ONE ×2 (14:18→14:45)
[2017-09-09] MEDS ORDERED: DIAZEPAM 5 MG TAB ONE (14:19)
--- NOTE | 2017-09-09 14:36 | PDHPUP ---
History & Physical Update H&P update statement: This history and physical update is based on an assessment of the patient which was completed after admission or registration (within 24 hours), but prior to the surgery/procedure. H&P update: H&P reviewed & patient examined, no change in patient's condition since H&P completed
--- NOTE | 2017-09-09 14:36 | PDPROPOC ---
Sedation Plan of Care Sedation Plan of Care: vital signs stable, mental status noted, patient educated of risks, benefits, alternatives, patient can tolerate sedation ASA Classification: ASA 2 Planned drugs: fentanyl, midazolam Mallampati Score: Class 2 Mallampati Reference Image: Patient passed 3-3-2 rule?: Yes
[2017-09-09] MEDS ORDERED: LIDOCAINE 1% 300 MG/30 ML SDV ONE (14:43)
[2017-09-09] MEDS ORDERED: MIDAZOLAM 2 MG/2 ML VIAL ONE (14:44)
[2017-09-09] MEDS ORDERED: IOPAMIDOL (ISOVUE-370) 150 ML BTL IV ONE (14:44)
[2017-09-09] MEDS ORDERED: fentaNYL 100 MCG/2 ML INJ ONE (14:44)
[2017-09-09] MEDS ORDERED: ASPIRIN 325 MG TAB PO ONE (14:45)
[2017-09-09] MEDS ORDERED: FAMOTIDINE 20 MG TAB PO ONE (14:45)
[2017-09-09] MEDS ORDERED: DIAZEPAM 5 MG TAB PO ONE (14:45)
[2017-09-09] MEDS ORDERED: BIVALIRUDIN 250 MG/5 ML VIAL IV ONE (15:16)
[2017-09-09] MEDS ORDERED: CLOPIDOGREL BISULFATE 75 MG TAB ONE ×2 (15:55→15:56)
[2017-09-09] MEDS ORDERED: CLOPIDOGREL BISULFATE 75 MG TAB PO ONE (15:59)
[2017-09-09] MEDS: TAMSULOSIN HCL 0.4 MG CAP PO SCH (21:44)
[2017-09-09] MEDS: ASPIRIN 81 MG CHEWABLE TAB PO SCH (21:45)
[2017-09-09] MEDS: PRAVASTATIN SODIUM 40 MG TAB PO SCH (21:45)
--- NOTE | 2017-09-09 21:56 | CPIP ---
[f rep st] INVASIVE CARDIAC PROCEDURE DATE OF PROCEDURE: 09/09/2017 PROCEDURE: 1. Coronary angiography. 2. Stenting of left anterior descending coronary artery with Synergy drug-eluting stents. INDICATION: 1. Class 3 angina. 2. Abnormal nuclear stress test which is low to intermediate risk. ACCESS: The patient was prepped and draped in sterile fashion. 1% lidocaine was used to anesthetize the left inguinal region. A 6-Malay introducer sheath was placed selectively in the left common fe moral artery via modified Seldinger technique. CORONARY ANGIOGRAPHY: A 6-Malay EBU 3.5 catheter was advanced to the left main coronary artery and images obtained. The left main coronary artery bifurcated into an LAD and circumflex coronary arteri es. The left main coronary artery had mild luminal irregularities throughout with no flow limitation . The left anterior descending coronary artery is diffusely diseased. In the proximal segment, ther e is a segmental 70% stenosis present. In the mid segment, there is a segmental 80% stenosis present . Percutaneous coronary intervention of the left anterior descending coronary artery. A Luge wire w as placed in the distal vessel and position verified by angiography. A 2.0 x 15 Emerge balloon was u sed to pre-dilate the mid left anterior descending coronary artery lesion. Followup angiography demo nstrated ANDREW-3 flow with significant residual stenosis. A 2.25 x 20 Synergy drug-eluting stent was then placed in the mid vessel and deployed. Followup angiography demonstrated ANDREW-3 flow. No resid ual stenosis. There was a slight step-up and step-down prior to and after the stent. A 2.5 x 16 Syn ergy drug-eluting stent was then placed in the proximal left anterior descending coronary artery, and position verified by angiography. Stent was deployed. Followup angiography demonstrated ANDREW-3 reddy w and complete stent expansion of the proximal portion of the stent. The proximal portion of the pat nt was post dilated with a 2.75 x 8 noncompliant balloon. Followup angiography demonstrated ANDREW-3 f low. No residual stenosis. COMPLICATIONS: None. CONCLUSIONS: 1. 2-vessel coronary artery disease. 2. Status post successful stenting of the left anterior descending coronary artery with Synergy drug -eluting stents. /[id number]/MODL
[2017-09-10 03:51] VITALS: PULSE 58
[2017-09-10 05:21] LABS: ABSOLUTE IMMATURE GRANULOCYTES 0.11 10^3/uL (0.00-0.10); ADD DIFF? NO; ADD MORPH? NO; ADD SCAN? NO; ATYPICAL LYMPHOCYTE FLAG 0 (0-99); FRAGMENT RBC FLAG 0 (0-99); HEMATOCRIT 36.6 % (40.0-51.0); HEMOGLOBIN 12.4 g/dL (13.7-17.5); LEFT SHIFT FLG 0 (0-99); LIPEMIA HEMOLYSIS FLAG 90 (0-99); MEAN CELL HEMOGLOBIN 29.7 pg (27.9-34.1); MEAN CELL HEMOGLOBIN CONCENTR. 33.9 g/dL (32.4-36.7); MEAN CELL VOLUME 87.8 fL (81.5-99.8); PLATELET CLUMPS FLAG 0 (0-99); PLATELET COUNT 320 10^3/uL (150-400); RED BLOOD CELL COUNT 4.17 10^6/uL (4.40-6.38); RED CELL DISTRIBUTION WIDTH 14.3 % (11.5-15.2)
[2017-09-10 05:28] LABS: ANION GAP 9 mEq/L (8-16); CALCIUM 8.5 mg/dL (8.5-10.4); CARBON DIOXIDE 25 mEq/l (22-31); CHLORIDE 105 mEq/L (97-110); CREATININE 1.4 mg/dL (0.7-1.3); GLOMERULAR FILTRATION RATE 49; GLUCOSE 50 mg/dL (70-100); POTASSIUM 4.4 mEq/L (3.5-5.2); SODIUM 139 mEq/L (134-144)
--- NOTE | 2017-09-10 07:05 | CPEKG ---
Heart Rate: 55 RR Interval: 1091 P-R Interval: 156 QRSD Interval: 88 QT Interval: 476 QTC Interval: 456 P [place]: 81 QRS [place]: -18 T Wave [place]: 40 EKG Severity - OTHERWISE NORMAL ECG - EKG Impression: SINUS RHYTHM EKG Impression: BORDERLINE LEFT AXIS DEVIATION EKG Impression: LOW VOLTAGE IN FRONTAL LEADS Electronically Signed By: Marco Giles 11-Sep-2017 20:52:11
[2017-09-10 07:41] VITALS: BP 113/62; RESP 16; TEMP 97.8; O2SAT 91
[2017-09-10] MEDS ORDERED: CLOPIDOGREL BISULFATE 75 MG TAB PO SCH (09:00)
[2017-09-10] MEDS ORDERED: PNEUMOC 13-VAL CONJ-DIP CRM/PF 0.5 ML SYR IM ONE (09:00)
--- NOTE | 2017-09-10 09:01 | CPEKG ---
Heart Rate: 68 RR Interval: 882 P-R Interval: 156 QRSD Interval: 100 QT Interval: 416 QTC Interval: 443 P [place]: 81 QRS [place]: -47 T Wave [place]: 43 EKG Severity - ABNORMAL ECG - EKG Impression: SINUS RHYTHM EKG Impression: LEFT ANTERIOR FASCICULAR BLOCK Electronically Signed By: Marco Giles 11-Sep-2017 20:51:56
[2017-09-10] MEDS: predniSONE 10 MG TAB PO SCH (09:19)
[2017-09-10] MEDS: CHOLECALCIFEROL VIT D3 1,000 UNITS TAB PO SCH (09:19)
[2017-09-10] MEDS: CITALOPRAM 20 MG TAB PO SCH (09:19)
[2017-09-10] MEDS: buPROPion SR 150 MG TAB PO SCH (09:19)
[2017-09-10] MEDS: LOSARTAN POTASSIUM 50 MG TAB PO SCH (09:20)
[2017-09-10] MEDS: MULTIVITAMINS 1 EACH TAB PO SCH (09:20)
[2017-09-10] MEDS: OMEGA-3 FATTY ACIDS 1,000 MG CAP PO SCH (09:20)
[2017-09-10] MEDS: ASCORBIC ACID 500 MG TAB PO SCH (09:20)
[2017-09-10] MEDS: METHYLFOLATE PO SCH (09:21)
--- NOTE | 2017-09-10 13:57 | ASDISCHSUM ---
Discharge Information Plan Status:Home with No Needs Medically Cleared to Leave:09/09/2017 Discharge Date:09/10/2017 01:09 PM D/C Disposition: ADT D/C Disposition:Home, Routine, Self-Care Projected Discharge Date:09/10/2017 12:00 AM Transportation at D/C: Discharge Delay Reason: Follow-Up Date:09/10/2017 12:00 AM Discharge Slot: Final Diagnosis: Placement Information Patient Contact Information Contact Name:SUKHI Relationship: Address:[address] Work Phone: City:[place] Alternate Phone: [facility]/Zip Code:[place] [address] Email: Financial Information Financial Class: Primary Plan Desc:MEDICARE INPATIENT Primary Plan Number:[id number] Secondary Plan Desc:[employer]/M[employer] SUPPLEMENT Secondary Plan Number:[id number] Assessment Information [facility] CM Progress Note CM Note CM Note Notes: 09/08/2017 Case Management Note Reviewed chart. Pt admitted for cath. Previous hospital stay on 08/28 d/c home independent. There are no PT or OT evals ordered. Case Management d/c poc: anticipating independent d/c when medically stable with follow up as directed. Case Management available if needs change. Date Signed: 09/08/2017 04:44 PM Electronically Signed By:Bobbi Altman RN Intervention Information Intervention Type:*LEA-Signed Date of Service:09/08/2017 02:12 PM Patient Type:Observation Staff Member:Aline Brooks Hours: Discipline: Severity: Comment:
--- NOTE | 2017-09-11 03:22 | GDS ---
[f rep st] DISCHARGE SUMMARY ADMIT DIAGNOSES: 1. Chest pain. 2. Abnormal nuclear stress test. 3. Planned cardiac angiogram. 4. Chronic renal insufficiency. DISCHARGE DIAGNOSES: 1. Coronary artery disease. 2. Stenting of left descending coronary artery with drug-eluting stent. 3. Chronic renal insufficiency. COURSE OF HOSPITALIZATION: This gentleman was admitted for a cardiac angiogram with Dr. Jan Singh due to an abnormal nuclear stress test that was done in the office prior to admission. It w as recommended to proceed with cardiac catheterization due to the abnormal nuclear stress test mildred dominguez. He does have chronic renal insufficiency. The angiogram was done, finding indication of blockag e with possible need for intervention. Due to his chronic renal insufficiency, he was taken to PCU f or overnight observation and plan for possible cardiac intervention the following day. It was felt w ith his renal insufficiency it would be better tolerated to proceed with possible intervention the . On 09/09/2017, he was taken to the cardiac excavation laborer by Dr. Jonel Sampson. His creatinine level was stable at 1.4. He did find 2-vessel disease, placing a drug-eluting stent to the proximal left anterior descending and mid left anterior descending. There were no complications. He was cesar en to PCU for overnight observation where he has done well. His kidney functions have remained stabl e. At time of discharge, creatinine is 1.4. He has had no more chest pain. At this time he is stab le for discharge. DISCHARGE MEDICATIONS: He will go home on aspirin 81 mg daily, Pravachol 40 mg at bedtime, losartan 25 mg daily, Plavix 75 mg daily, vitamin C 500 mg daily, vitamin D3 at 1000 units daily, fish oil ome ga-3 at 1000 mg 1 daily, multivitamin daily, Flomax 0.8 mg at bedtime, Celexa 20 mg daily, bupropion 150 mg twice daily, Deplin 15 mg 1 tab daily, prednisone 10 mg daily, Tylenol 325 mg to 650 mg 4 time s a day as needed for pain, not to exceed 3 g daily. ALLERGIES: He has no known allergies. PHYSICAL EXAMINATION: VITAL SIGNS: On day of discharge, blood pressure 113/62, heart rate 58 and re gular. EKG shows a sinus waldemar with no ischemic changes. CARDIOVASCULAR: Heart rate regular. No m urmurs, rubs, or gallops. RESPIRATORY: Lungs sounds are clear to auscultation. No wheezes, rales, or rhonchi. SKIN: Groin site cath access is stable with no ecchymosis, tenderness, or bleeding. EX TREMITIES: Peripheral pulses are 2+ bilateral. DISCHARGE PLAN: He will follow up in [address] Singh. Groin site instructions were given, w ritten and verbally. He understands no lifting, pushing, pulling greater than 10 pounds for the next week. No sitting in a tub of water. He can shower. Should groin site bleed, he will hold firm continuous pressure and go to the nearest emergency room. At this time, he currently is stable for discharge. /[id number]/MODL
== END 2017-09-10 13:09 | disposition home or self-care (01) | DRG 247 ==
LOC: FCATH 06:19 → F2W 12:03 → OBSVTOIN 09-09 14:05
PROVIDERS: ADMIT Internal Medicine; ATTEND Internal Medicine
PROC: B2111ZZ Fluoroscopy of Multiple Coronary Arteries using Low Osmolar Contrast (ICD-10-PCS; 2017-09-08)
PROC: 027034Z Dilation of Coronary Artery, One Artery with Drug-eluting Intraluminal Device, Percutaneous Approach (ICD-10-PCS; principal; 2017-09-09)
DX: I25.10 Atherosclerotic heart disease of native coronary artery without angina pectoris (principal); N18.9 Chronic kidney disease, unspecified
CPT/HCPCS: C1725; C1769; C1874; C1887; C9600; J0583; J1644; J2250; J3010; Q9967

== ENCOUNTER → 2018-09-15 | Outpatient (CLI) | payer OTHER, MEDICARE | LOC: BHFA 08:30 | PROVIDERS: ATTEND Internal Medicine Cardiovascular Disease | DX: I25.10 Atherosclerotic heart disease of native coronary artery without angina pectoris (principal); R06.02 Shortness of breath | CPT/HCPCS: 78452; 93017; A9500; J2785 ==

== ENCOUNTER → 2018-10-29 | Outpatient (CLI) | payer OTHER, MEDICARE ==
[~2018-10-29] MED LIST: GADOBUTROL 10 ML VIAL IVP ONE
== END ==
LOC: FIMAGING 07:41
PROVIDERS: ATTEND Urology
DX: N40.2 Nodular prostate without lower urinary tract symptoms (principal)
CPT/HCPCS: 72197; 76377; A9585; 82565-PO

== ENCOUNTER → 2019-01-21 | Outpatient (CLI) | payer OTHER, MEDICARE | LOC: FIMAGING 10:13 | PROVIDERS: ATTEND Specialist | DX: C61 Malignant neoplasm of prostate (principal); M53.86 Other specified dorsopathies, lumbar region | CPT/HCPCS: 78306; A9503 ==